=== PATIENT | female | born 1960 | race Caucasian/White ===

== ENCOUNTER 2023-08-15 20:40 | Outpatient (REF) | payer OTHER, SELFPAY ==
[2023-08-20 10:11] LABS: Age Gdln ACOG Testing Note (.); HPV Aptima Negative (Negative); IGP, Aptima HPV, rfx 16/18,45 Note (.)
== END 2023-08-15 20:41 | disposition home or self-care (01) ==
LOC: LAB 20:40
PROVIDERS: PCP Internal Medicine; Visit Provider Obstetrics & Gynecology
DX: Z01.419 Encounter for gynecological examination (general) (routine) without abnormal findings (principal)
CPT/HCPCS: 87624; G0145

== ENCOUNTER 2023-10-13 08:50 | Outpatient (OUT) | payer OTHER, SELFPAY ==
--- NOTE | 2023-10-13 08:56 | XR_ITS ---
[address] [address] Patient Name: ROCIO PETE MRN: [id number]:[id number] date: 1960 Sex: F Assigned Patient Location: [facility] Current Patient Location: [facility] Accession/Order Number: [id number] Exam Date: 10/13/2023 09:12 Report Date: 10/13/2023 09:57 At the request of: WILIAN VILLALTA Procedure: XR DEXA axial skeleton EXAMINATION: XR DEXA axial skeleton HISTORY: Postmenopausal Z78.0 COMPARISON: DEXA bone densitometry 09/23/2021 TECHNIQUE: Dual-energy X-ray absorptiometry (DXA) was performed. FINDINGS: SPINE ANALYSIS: Average bone mineral density is 1.373 g/cm2. T-score (standard deviation relative to young adult mean): 1.6 . -0.3% change since prior study. HIP ANALYSIS: Lowest bone mineral density is within the right femoral neck, 0.899 g/cm2. T-score (standard deviation relative to young adult mean): -1.0 . -7.8% change since prior study. XR/XR DEXA axial skeleton IMPRESSION: [employer] Classification: Normal - Low Fracture Risk Electronically authenticated by: CHICHI THOMAS Date: 10/13/2023 09:57
--- NOTE | 2023-10-13 08:56 | MM_ITS ---
Patient Name: ROCIO PETE MR#: [id number] : 1960 Exam Date: 10/13/2023 Ordering Doctor: DR Caden Germain . RADIOLOGY REPORT PROCEDURE: MM TOMOSYNTHESIS SCREENING BI COMPARISON: MG MAMM SCREEN 3D [place] CAD, 09/26/2022. MG MAMM SCREEN 3D [place] CAD, 09/23/2021. MG MAMM SCREEN [place] W CAD, 07/03/2020. MG MAMM [place] SCRN W CAD DIG, 02/06/2013. INDICATIONS: Screening Calculator Name NCI Breast Cancer Risk Assessment Tool 5 Year Breast Cancer Risk 1.30% Lifetime Breast Cancer Risk 6.40% Personal Breast Cancer No Personal Ovarian Cancer No Treatments None Family Cancers Sister with lung cancer at age 57; Aunt-maternal with breast cancer at age 60; Aunt-paternal with breast cancer at age 58; Father with vocal chords cancer at age 50; Mother with lung cancer at age 40. LOCATION: [facility] BREAST COMPOSITION: Scattered areas fibroglandular density. FINDINGS: DIAGNOSTIC CATEGORY 1--NEGATIVE. RIGHT BREAST: No significant suspicious finding. No significant change has occurred. LEFT BREAST: No significant suspicious finding. No significant change has occurred. RECOMMENDATIONS: ROUTINE MAMMOGRAM AND CLINICAL EVALUATION IN 12 MONTHS. PLEASE NOTE: A NORMAL MAMMOGRAM DOES NOT EXCLUDE THE POSSIBILITY OF BREAST CANCER. A CLINICALLY SUSPICIOUS PALPABLE LUMP SHOULD BE BIOPSIED. Dictated by: Maicol Romo M.D. on 10/13/2023 at 13:40 Approved by: Maicol Romo M.D. on 10/13/2023 at 13:44
--- OUTSIDE RECORDS SUMMARY | 2023-10-13 09:13 | XMS_ITS | CCD ---
Author Organization [facility] Care Team Providers Care Legal Internship Name Role Phone JESSA ., DR CEDENO Admitting Unavailable JESSA ., DR CEDENO Attending Unavailable SULAIMAN, DR YO Primary Care Unavailable JESSA ., DR CEDENO Consulting Unavailable ZIEBER, DR MAICOL Mac Consulting Unavailable SULAIMAN, DR YO Admitting Unavailable SULAIMAN, DR YO Attending Unavailable SULAIMAN, DR YO Primary Care Unavailable SULAIMAN, DR YO Consulting Unavailable MARINAEBER, DR MAICOL Mac Consulting Unavailable SULAIMAN, DR YO Admitting Unavailable SULAIMAN, DR YO Attending Unavailable SULAIMAN, DR YO Primary Care Unavailable SULAIMAN, DR YO Consulting Unavailable JESSA ., DR CEDENO Admitting Unavailable JESSA ., DR CEDENO Attending Unavailable BALL, DR YO Primary Care Unavailable JESSA ., DR CEDENO Consulting Unavailable Justus Hilario Unavailable Silvestre Escalona Unavailable MD Silvestre Escalona Attending Provider [phone] DO Justus Hilario Primary Care Provider Justus iHlario Primary Care Unavailable Silvestre Escalona Attending Unavailable Pola, Silvestre Admitting Unavailable Luis Alberto Davalos Unavailable WILIAN GERMAIN Attending Unavailable Justus Hilario MD Primary Care Provider Medications Current Medications Medication Drug Class(es) Dates Sig (Normalized) Sig (Original) levonorgestrel 0.219437 mg/hr intrauterine system (4 sources) Progestin, Progestin-containi ng Intrauterine Device Start: 03-13-2022 Mirena (52 MG) 20 MCG/DAY as directed Intrauterine for 0 days Feb, Active levothyroxine sodium 0.1 mg oral tablet (6 sources) l-Thyroxine Start: 06-02-2023 take 1 tablet by mouth before mealtime levothyroxine (Synthroid, Levoxyl) 100 MCG tablet Take 100 mcg by mouth in the morning. Take before meals. 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 Genitourinary symptoms and ill-defined conditions (4 sources) Pyuria; Translations: [Pyuria] Episodic Immunizations and screening for infectious disease (1 source) Encounter for screening for human papillomavirus (HPV); Translations: [ENC SCREENING HUMAN PAPILLOMAVIRUS] Onset: 08-10-2022 Episodic Other diseases of kidney and ureters (4 sources) Other specified disorders of kidney and ureter; Translations: [OTHER SPEC DISORDERS KIDNEY URETER] Onset: 03-29-2022 Chronic Other diseases of kidney and ureters (4 sources) Disorder of kidney and/or ureter; Translations: [Other specified disorders of kidney and ureter] Chronic Other diseases of kidney and ureters (4 sources) Cyst of kidney; Translations: [Cyst of kidney, acquired] Episodic Other screening for suspected conditions (not mental disorders or infectious disease) (10 sources) Encounter for screening mammogram for malignant neoplasm of breast; Translations: [Encounter for screening for malignant neoplasm of cervix] Onset: 08-09-2022 Episodic Residual codes; unclassified (1 source) Family history of malignant neoplasm of trachea, bronchus and lung; Translations: [FAM HX MALIG NEOPLSM TRACH BRON LNG] Onset: 09-27-2022 Episodic Residual codes; unclassified (1 source) Family history of malignant neoplasm of breast; Translations: [FAMILY HX MALIG NEOPLASM OF BREAST] Onset: 09-27-2022 Episodic Unclassified (1 source) Encounter for screening for malignant neoplasm of colon; Translations: [Encounter for screening for malignant neoplasm of colon] Onset: 06-02-2023 Results Test Name Value Interpretation Reference Range Facility IGP,APTIMA HPV,AGE GDLNon AGE GDLN ACOG TESTING Note . [facility] Comment on above: TESTS RESULT FLAG U NITS REF RANGE LAB Clinician Provided Cytology Information Source.............Cervix No. of containers..01 ThinPrep Vial Age Algo ACOG Anju... FLAG LEGEND: L-Low Normal,H-High Normal,LL-Alert Low,HH-Alert High <-Panic Low,>-Panic High,A-Abnormal,AA-Critical Abnormal Performed at: 01 =G [address] [address] Jen Brasher MD, HPV APTIMA Negative Negative [facility] Comment on above: This nucleic acid am plification test detects fourteen high- risk HPV types (16,18,31,33,35,39,45,51,52,56,58,59,66,68) without differentiation. Performed at: =[address] [id number] Nurse Supervisor: Jen Brasher MD, Phone: [phone] Performed at: [facility] [address] [place] [id number] Nurse Supervisor: Jose Lizama MD, Phone: [phone] IGP, APTIMA HPV, RFX 16/18,45 Note . [facility] Comment on above: TESTS RESULT FLAG UN ITS REF RANGE LAB DIAGNOSIS: 02 NEGATIVE FOR INTRAEPITHELIAL LESION OR MALIGNANCY. CELLULAR CHANGES ASSOCIATED WITH ATROPHY ARE PRESENT. Specimen adequacy: 02 Satisfactory for evaluation. Endocervical component may not be distinguished in cases of atrophy. Performed by: 02 Kyra Rashid, U.S. Commissioner (ASC) . 02 Note: Note 03 The Pap smear is a screening test designed to aid in the detection of premalignant and malignant conditions of the uterine cervix. It is not a diagnostic procedure and should not be used as the sole means of detecting cervical cancer. Both false-positive and false-negative reports do occur. Test Methodology: Note 03 This liquid based ThinPrep(R) pap test was screened with the use of an image guided system. HPV Genotype Reflex Note 02 Criteria not met, HPV Genotype not performed. FLAG LEGEND: L-Low Normal,H-High Normal,LL-Alert Low,HH-Alert High <-Panic Low,>-Panic High,A-Abnormal,AA-Critical Abnormal Performed at: 02 [facility] [address] [place] [address] Jose Lizama MD, 03 [facility] [address] [address] Jen Brasher MD, BRUSH-SPATULA CERVIX [facility] MG MAMM SCREEN 3D ALLISON CADon 09-26-2022 MG MAMM SCREEN 3D ALLISON CAD Patient: KYRA ARROYO Exam Date: 09/26/2022 : 1960 Gender:F Ordering : DR WILIAN GERMAIN . Admission #: [id number] Family : Order #: [id number] CLICK HERE TO VIEW EXAM RADIOLOGY REPORT PROCEDURE: MAMMOGRAM SCREENING 3D BILATERAL CAD COMPARISON: MG MAMM SCREEN ALLISON W CAD, 07/03/2020. MG MAMM SCREEN ALLISON W CAD, 07/02/2019. DIGITIZED_MAMMO, 07/03/2007. MG MAMM SCREEN 3D ALLISON CAD, 09/23/2021. INDICATIONS: Screening mammography Calculator Name NCI Breast Cancer Risk Assessment Tool 5 Year Breast Cancer Risk 1.30% Lifetime Breast Cancer Risk 6.60% Personal Breast Cancer No Personal Ovarian Cancer No Treatments None Family Cancers Sister with lung cancer at age 57; Aunt-maternal with breast cancer at age 60; Aunt-paternal with breast cancer at age 58; Father with vocal chords cancer at age 50; Mother with lung cancer at age 40. LOCATION: [facility] BREAST COMPOSITION: Scattered areas fibroglandular density. FINDINGS: DIAGNOSTIC CATEGORY 1--NEGATIVE. RIGHT BREAST: No significant suspicious finding. No significant change has occurred. LEFT BREAST: No significant suspicious finding. No significant change has occurred. RECOMMENDATIONS: ROUTINE MAMMOGRAM AND CLINICAL EVALUATION IN 12 MONTHS. PLEASE NOTE: A NORMAL MAMMOGRAM DOES NOT EXCLUDE THE POSSIBILITY OF BREAST CANCER. A CLINICALLY SUSPICIOUS PALPABLE LUMP SHOULD BE BIOPSIED. Dictated by: Maicol Romo M.D. on 09/26/2022 at 10:21 Approved by: Maicol Romo M.D. on 09/26/2022 at 10:23 Normal [facility] PAP ACOG PANEL 2: 30 to 65on 08-16-2022 . . Normal [facility] Comment on above: Result Comment: Perf ormed at: [facility] Performed By: #### [id number] #### [facility] [address] [address] [address] Ramin Ambrose Age Gdln ACOG Testing 30-65 Normal [facility] Comment on above: Performed By: #### [id number] #### [facility] [address] [place] [address] Dr. Ramin Ambrose DIAGNOSIS: Comment Normal [facility] Comment on above: Result Comment: NEGA TIVE FOR INTRAEPITHELIAL LESION OR MALIGNANCY. CELLULAR CHANGES ASSOCIATED WITH ATROPHY ARE PRESENT. Performed at: [facility] Performed By: #### [id number] #### [facility] [address] [place] [address] Dr. Ramin Ambrose HPV Aptima Negative Normal Negative [facility] Comment on above: Result Comment: This nucleic acid amplification test detects fourteen high-risk HPV types (16,18,31,33,35,39,45,51,52,56,58,59,66,68) without differentiation. Performed at: =G Performed By: #### 4 [id number] #### [facility] [address] [place] [address] Dr. Ramin Ambrose HPV Genotype Reflex Comment Normal [facility] Comment on above: Result Comment: Crit eria not met, HPV Genotype not performed. Performed at: [facility] Performed By: #### [id number] #### [facility] [address] [place] [address] Dr. Ramin Ambrose Methodology: Comment Normal [facility] Comment on above: Result Comment: This liquid based ThinPrep(R) pap test was screened with the use of an image guided system. Performed at: [facility] Performed By: #### [id number] #### [facility] [address] [place] [address] Dr. Ramin Ambrose Note: Comment Normal [facility] Comment on above: Result Comment: The Pap smear is a screening test designed to aid in the detection of premalignant and malignant conditions of the uterine cervix. It is not a diagnostic procedure and should not be used as the sole means of detecting cervical cancer. Both false-positive and false-negative reports do occur. . Performed at: [facility] Performed By: #### [id number] #### [facility] [address] [place] [address] Dr. Ramin Ambrose Performed by: Comment Normal [facility] Comment on above: Result Comment: Og Velazco U.S. Commissioner (ASCP) Performed at: [facility] Performed By: #### 4 [id number] #### [facility] [address] [address] [address] Ramin Ambrose Specimen adequacy: Comment Normal [facility] Comment on above: Result Comment: Sati sfactory for evaluation. Endocervical component may not be distinguished in cases of atrophy. Performed at: [facility] Performed By: #### 4 [id number] #### [facility] [address] ABDOMEN WO/W CONon 2021 CT ABDOMEN WO/W CON EXAMINATION: CT ABDOMEN WO/W CON HISTORY: Disorder of kidney and/or ureter ; follow-up left renal mass COMPARISON: CT abdomen pelvis 06/21/2021 TECHNIQUE: Axial, Coronal, and Sagittal images were created without and with non-ionic intravenous contrast material. Dose reduction techniques were achieved by using automated exposure control and/or adjustment of mA and/or kV according to patient size and/or use of iterative reconstruction technique. FINDINGS: LUNG BASES: No visible pulmonary or pleural disease. LIVER: No enlargement, atrophy, abnormal density, or significant focal lesion. BILIARY: No visible dilatation or calcification. PANCREAS: No lesion, fluid collection, ductal dilatation, or atrophy. SPLEEN: No enlargement or focal lesion. ADRENALS: No mass or enlargement. KIDNEYS: Stable 1.6 cm cyst within mid body of left kidney. No hydronephrosis, mass, or stones. BOWEL/MESENTERY: No visible mass, obstruction, or bowel wall thickening. AORTA/VASCULAR: No aneurysm or dissection. RETROPERITONEUM: No mass or adenopathy. ABDOMINAL WALL: No mass or hernia. BONES: No bony lesion or fracture. OTHER: Negative. IMPRESSION: 1. Stable left renal cyst. No suspicious findings. Electronically authenticated by: MAICOL ROMO Date: 2022-03-29 16:19 Normal [facility] CBC AUTO DIFFon 03-03-2022 BASO # 0.1 103/ul Normal 0.0-0.1 [facility] Comment on above: Performed By: #### H FPFCBC #### [facility] [address] [address] [address] Ramin Ambrose Basophils/100 WBC (Bld) 1.7 % Normal 0.2-2.0 [facility] Comment on above: Performed By: #### H FPFCBC #### [facility] [address] [place] [address] Dr. Ramin Ambrose EO # 0.3 103/ul Normal 0.0-0.7 [facility] Comment on above: Performed By: #### H FPFCBC #### [facility] [address] [place] [address] Dr. Ramin Ambrose Eosinophils/100 WBC (Bld) 7.4 % Critically high 0.9-7.0 [facility] Comment on above: Performed By: #### H FPFCBC #### [facility] [address] [place] [address] Dr. Ramin Ambrose Erythrocyte distribution width (RBC) [Ratio] 12.1 % Normal 11.0-15.0 [facility] Comment on above: Performed By: #### H FPFCBC #### [facility] [address] [place] [address] Dr. Ramin Ambrose Hematocrit (Bld) [Volume fraction] 40.5 % Normal 36.0-48.0 [facility] Comment on above: Performed By: #### H FPFCBC #### [facility] [address] [place] [address] Dr. Ramin Ambrose Hemoglobin (Bld) [Mass/Vol] 13.4 g/dL Normal 12.0-16.0 [facility] Comment on above: Performed By: #### H FPFCBC #### [facility] [address] [place] [address] Dr. Ramin Ambrose IG # 0.00 10e3/ul Normal 0.00-0.03 [facility] Comment on above: Performed By: #### H FPFCBC #### [facility] [address] [place] [address] Dr. Ramin Ambrose IG % 0.0 % Normal 0.0-0.5 [facility] Comment on above: Performed By: #### H FPFCBC #### [facility] [address] [place] [address] Dr. Ramin Ambrose LYMPH # 1.6 103/ul Normal 1.2-3.8 [facility] Comment on above: Performed By: #### H FPFCBC #### [facility] [address] [place] [address] Dr. Ramin Ambrose Lymphocytes/100 WBC (Bld) 38.2 % Normal 20.5-60.0 [facility] Comment on above: Performed By: #### H FPFCBC #### [facility] [address] [place] [address] Dr. Ramin Ambrose MCH (RBC) [Entitic mass] 31.2 pg Normal 26.7-34.0 [facility] Comment on above: Performed By: #### H FPFCBC #### [facility] [address] [place] [address] Dr. Ramin Ambrose MCHC (RBC) [Mass/Vol] 33.1 g/dL Normal 29.9-35.2 [facility] Comment on above: Performed By: #### H FPFCBC #### [facility] [address] [place] [address] Dr. Ramin Ambrose MCV (RBC) [Entitic vol] 94.4 fL Normal 81.0-99.0 [facility] Comment on above: Performed By: #### H FPFCBC #### [facility] [address] [place] [address] Dr. Ramin Ambrose MONO # 0.3 103/ul Normal 0.3-0.8 [facility] Comment on above: Performed By: #### H FPFCBC #### [facility] [address] [place] [address] Dr. Ramin Ambrose Monocytes/100 WBC (Bld) 7.4 % Normal 1.7-12.0 [facility] Comment on above: Performed By: #### H FPFCBC #### [facility] [address] [place] [address] Dr. Ramin Ambrose NEUT # 1.8 103/ul Normal 1.4-6.5 [facility] Comment on above: Performed By: #### H FPFCBC #### [facility] [address] [place] [address] Dr. Ramin Ambrose Neutrophils/100 WBC (Bld) 45.3 % Normal 43.0-75.0 [facility] Comment on above: Performed By: #### H FPFCBC #### [facility] [address] [address] [address] Ramin Ambrose Platelet mean volume (Bld) [Entitic vol] 9.9 fL Normal 9.5-13.5 [facility] Comment on above: Performed By: #### H FPFCBC #### [facility] [address] [address] [address] Ramin Ambrose PLT 233 103/ul Normal 150-450 [facility] Comment on above: Performed By: #### H FPFCBC #### [facility] [address] [place] [address] Dr. Ramin Ambrose RBC 4.29 106/ul Normal 4.20-5.40 [facility] Comment on above: Performed By: #### H FPFCBC #### [facility] [address] [place] [address] Dr. Ramin Ambrose WBC 4.1 103/ul Normal 4.0-11.0 [facility] Comment on above: Performed By: #### H FPFCBC #### [facility] [address] [place] [address] Dr. Ramin Ambrose HEALTHFAIR PROFILEon 022 Albumin [Mass/Vol] 4.2 g/dL Normal 3.4-5.0 [facility] Comment on above: Performed By: #### H FPF #### [facility] [address] [place] [address] Dr. Ramin Ambrose Albumin/Globulin [Mass ratio] 1.2 {ratio} Normal [facility] Comment on above: Performed By: #### H FPF #### [facility] [address] [place] [address] Dr. Ramin Ambrose ALP [Catalytic activity/Vol] 63 U/L Normal 46-116 [facility] Comment on above: Performed By: #### H FPF #### [facility] [address] [place], [place] [id number] Dr. Ramin Ambrose ALT [Catalytic activity/Vol] 28 U/L Normal 14-59 [facility] Comment on above: Performed By: #### H FPF #### [facility] [address] [address] [address] Ramin Ambrose AST [Catalytic activity/Vol] 28 U/L Normal 15-37 [facility] Comment on above: Performed By: #### H FPF #### [facility] [address] [address] [address] Ramin Ambrose Bilirubin [Mass/Vol] 0.6 mg/dL Normal 0.2-1.0 [facility] Comment on above: Performed By: #### H FPF #### [facility] [address] [place] [address] Dr. Ramin Ambrose Calcium [Mass/Vol] 9.2 mg/dL Normal 8.5-10.1 [facility] Comment on above: Performed By: #### H FPF #### [facility] [address] [place] [address] Dr. Ramin Ambrose Chloride [Moles/Vol] 105 mmol/L Normal 98-107 [facility] Comment on above: Performed By: #### H FPF #### [facility] [address] [place] [address] Dr. Ramin Ambrose CHOL-HDL RATIO NORM SEE BELOW Normal [facility] Comment on above: Result Comment: 3.3 - 4.4 LOW RISK 4.4 - 7.1 AVERAGE RISK 7.1 - 11.0 MODERATE RISK >11.0 HIGH RISK Performed By: #### H FPF #### [facility] [address] [place] [address] Dr. Ramin Ambrose Cholesterol [Mass/Vol] 172 mg/dL Normal <=200 [facility] Comment on above: Performed By: #### H FPF #### [facility] [address] [place] [address] Dr. Ramin Ambrose Cholesterol in HDL [Mass/Vol] 79 mg/dL Critically high 40-60 [facility] Comment on above: Performed By: #### H FPF #### [facility] [address] [address] [address] Ramin Ambrose Cholesterol in LDL [Mass/Vol] 85.8 mg/dL Normal [facility] Comment on above: Performed By: #### H FPF #### [facility] [address] [address] [address] Ramin Ambrose Cholesterol.total/ Cholesterol in HDL [Mass ratio] 2.2 {ratio} Normal [facility] Comment on above: Performed By: #### H FPF #### [facility] [address] [address] [address] Ramin Ambrose CO2 [Moles/Vol] 28.6 mmol/L Normal 21.0-32.0 [facility] Comment on above: Performed By: #### H FPF #### [facility] [address] [address] [address] Ramin Ambrose Creatinine [Mass/Vol] 1.12 mg/dL Critically high 0.55-1.02 [facility] Comment on above: Performed By: #### H FPF #### [facility] [address] [address] [address] Ramin Ambrose Globulin (S) [Mass/Vol] 3.5 g/dL Normal [facility] Comment on above: Performed By: #### H FPF #### [facility] [address] [address] [address] Ramin Ambrose Glucose [Mass/Vol] 78 mg/dL Normal 74-106 [facility] Comment on above: Performed By: #### H FPF #### [facility] [address] [address] [address] Ramin Ambrose HDL NORMAL > or = 60 mg/dl - LO W CARDIOVASCULAR RISK <40 mg/dl - HIGH CARDIOVASCULAR RISK Normal [facility] Comment on above: Performed By: #### H FPF #### [facility] [address] [address] [address] Ramin Ambrose LDL CALC NORMAL SEE BELOW Normal [facility] Comment on above: Result Comment: <100 mg/dl OPTIMAL 100 - 129 mg/dl NEAR OR ABOVE OPTIMAL 130 - 159 mg/dl BORDERLINE HIGH 160 - 189 mg/dl HIGH >190 mg/dl VERY HIGH Performed By: #### H FPF #### [facility] [address] [place] [address] Dr. Ramin Ambrose Potassium [Moles/Vol] 3.8 mmol/L Normal 3.5-5.1 [facility] Comment on above: Performed By: #### H FPF #### [facility] [address] [place] [address] Dr. Ramin Ambrose Protein [Mass/Vol] 7.7 g/dL Normal 6.4-8.2 [facility] Comment on above: Performed By: #### H FPF #### [facility] [address] [place] [address] Dr. Ramin Ambrose Sodium [Moles/Vol] 142 mmol/L Normal 136-145 [facility] Comment on above: Performed By: #### H FPF #### [facility] [address] [place] [address] Dr. Ramin Ambrose Triglyceride [Mass/Vol] 36 mg/dL Normal <=150 [facility] Comment on above: Performed By: #### H FPF #### [facility] [address] [place] [address] Dr. Ramin Ambrose TSH 1.448 uIU/mL Normal 0.358-3.740 [facility] Comment on above: Performed By: #### H FPF #### [facility] [address] [place] [address] Dr. Ramin Ambrose Urea nitrogen [Mass/Vol] 14.0 mg/dL Normal 7.0-18.0 [facility] Comment on above: Performed By: #### H FPF #### [facility] [address] [place] [address] Dr. Ramin Ambrose Urea nitrogen/Creatinin e [Mass ratio] 12.5 mg/mg Normal [facility] Comment on above: Performed By: #### H FPF #### [facility] [address] [place] [address] Dr. Ramin Ambrose VLDL CALC 7.2 mg/dL Normal [facility] Comment on above: Performed By: #### H FPF #### [facility] [address] [address] [address] Ramin Ambrose Vital Signs Date Time Vital Sign Value Performing Clinician Facility 06-02-2023 12:44-0500 Diastolic blood pressure 72 mm[Hg] DO Justus Ball Work Phone: [facility] 06-02-2023 12:44-0500 Heart rate 63 /min DO Justus Ball Work Phone: [facility] 06-02-2023 12:44-0500 Respiratory rate 18 /min DO Justus Ball Work Phone: [facility] 06-02-2023 12:44-0500 SaO2% (BldA) [Mass fraction] 98 % DO Justus Ball Work Phone: [facility] 06-02-2023 12:44-0500 Systolic blood pressure 119 mm[Hg] DO Justus Ball Work Phone: [facility] 06-02-2023 10:40-0500 Body height 160.02 cm DO Justus Ball Work Phone: [facility] 06-02-2023 10:40-0500 Body weight 61.23 kg DO Justus Ball Work Phone: [facility] 03-16-2023 11:30-0400 Body height 165.1 cm Justus Ball Other [facility] Other 03-16-2023 11:30-0400 Body mass index (BMI) [Ratio] 24.69 kg/m2 Justus Ball Other [facility] Other 03-16-2023 11:30-0400 Body weight 67.31 kg Justus Ball Other [facility] Other 03-16-2023 11:30-0400 Diastolic blood pressure 74 mm[Hg] Justus Ball Other [facility] Other 03-16-2023 11:30-0400 Respiratory rate 12 /min Justus Hilario Other [facility] Other 03-16-2023 11:30-0400 Systolic blood pressure 120 mm[Hg] Justus Hilario Other [facility] Other Encounters Encounter Date Encounter Type Care Provider Facility Start: 08-15-2023 [facility] Result Encounter Wilian Jessa DO Work Phone: [facility] Unsolicited Start: 08-15-2023 [facility] Result Encounter Wilian Jessa DO Work Phone: [facility] Unsolicited Start: 08-15-2023 End: 08-15-2023 ambulatory WILIAN JESSA Not Available Start: 06-22-2023 End: 06-22-2023 ambulatory Luis Alberto Davalos Other [facility] Other Start: 06-22-2023 Telephone encounter Luis Alberto Rodriguez Embroidery Assistant Start: 06-06-2023 End: 06-06-2023 ambulatory Justus Hilario Other [facility] Other Start: 06-06-2023 Telephone encounter [facility] Start: 06-02-2023 End: 06-02-2023 ambulatory Justus Hilario Facility:[facility] Start: 06-02-2023 End: 06-02-2023 Admission to same day surgery center DO Justus Hilario Work Phone: [facility] Work Phone: Start: 06-02-2023 End: 06-02-2023 ambulatory DO Justus Hilario Work Phone: [facility] Work Phone: Start: 03-31-2023 End: 03-31-2023 ambulatory Imad Asaad Other [facility] Other Start: 03-31-2023 Telephone encounter Imad Pola [employer] Start: 03-16-2023 End: 03-16-2023 ambulatory Justus Hilario Other [facility] Other Start: 03-16-2023 Encounter for genera l adult medical examination without abnormal findings Justus Hilario [facility] Start: 03-16-2023 Periodic preventive med est patient 40-64yrs Justus Sulaiman [facility] Start: 09-26-2022 End: 09-27-[address] WILIAN GERMAIN . Facility:[facility] Start: 08-09-2022 End: 08-09-[address] WILIAN GERMAIN . Facility:[facility] Start: 03-29-2022 End: 03-30-[address] JUSTUS HILARIO Facility:[facility] Start: 03-03-2022 End: 03-04-[address] JUSTUS HILARIO Facility:[facility] Procedures Date Procedure Procedure Detail Performing Clinician Start: 08-15-2023 IGP,APTIMA HPV,AGE GDLN Wilian Germain DO Work Phone: Start: 06-02-2023 Screening colonoscopy D O Justus Hilario Work Phone: Start: 09-26-2022 Mammography Wilian smith DO Work Phone: Screening for malign ant neoplasm of colon Justus Hilario Other Plan of Treatment Date Care Activity Detail Author Start: 08-20-2024 End: 08-20-2024 Patient encounter procedure 08/20/2024 8:30 AM EST Office Visit [facility] [address] [place] [address] Wilian Germain, DO [address] [place] [address] [facility] Start: 09-27-2023 Screening for malign ant neoplasm of breast Mammogram [facility] Start: 06-02-2023 [facility] Start: 03-17-2023 Influenza vaccination Influenza Vacc ine (#1) [facility] Start: 1992 Screening for malign ant neoplasm of cervix [facility] Start: 1983 Screening for malign ant neoplasm of cervix Pap Smear [facility] Start: 1962 Screening for malign ant neoplasm of colon [facility] Patient Education Hemorrhoids (DC) [facility] Work Phone: Payers Date Payer Category Payer Self-pay 2023 Unknown [employer] [id number] 2023-Present [address] [place] [address] [id number] 1960 Unknown [id number] 1962 Unknown [id number] 1962 Unknown [id number] 1962 Unknown [id number] 1959 Self-pay [id number] 1959 Unknown [id number] Unknown [id number] Unknown [id number] Social History Date Type Detail Facility Start: 07-26-2023 Sex Assigned At N [facility] Other Start: 1960 Sex Assigned At Female F [facility] Start: 07-26-2023 Tobacco smoking status NHIS Never smoked tobacco [facility] Start: 08-15-2023 Alcohol intake Current drinke r of alcohol (finding) [facility] Start: 07-26-2023 History of Social function [facility] Start: 07-26-2023 Alcohol Comment caffeine 1-2 c ups per day coffee [facility] Start: 08-08-2023 Gender identity Identifies as female gender (finding) [facility] Goals Date Patient Goal Desired Activity /State Procedure note 06-02-2023 Note Date & Type Note Facility 06-02-2023 Procedure note [facility] Evaluation note 03-16-2023 Note Date & Type Note Facility 03-16-2023 Evaluation note Encounter Date Diagnosis Assessment Notes Feb, Wellness examination (ICD-10 - Z00.00) Healthy diet and exercise. Reviewed age-appropriate preventive testing recommended. Feb, Postablative hypothyroidism (ICD-10 - E89.0) TSH suppressed but she denies symptoms of overactive thyroid and would prefer no change in her dose. Discussed potential adverse influence on bone health and need to reduce dose in future Feb, Screening mammogram for breast cancer (ICD-10 - Z12.31) Instructed on monthly SBE and yearly mammogram Feb, Screening for colon cancer (ICD-10 - Z12.11) She is due for CRC screening- her last colonoscopy was in 2012- she denies change in appetite, weight or bowel habits- she denies N/V, heartburn or dysphagia- she denies abdominal pain, melena or hematochezia [facility] Other Evaluation note Note Date & Type Note Facility Evaluation note No Information [facility] [employer] Other Evaluation note Note Date & Type Note Facility Evaluation note No assessment information availa [facility] Work Phone: History and physical note Note Date & Type Note Facility History and physical note Note Date/Time June 02, 2023 11:47am [facility] [address] [place] [address] Gastroenterology H&P Signed Patient: Kyra Arroyo MR#: [id number] 0 : 1960 Acct:[id number] Age/Sex: 62 / F Adm Date: 3 Loc: Room: Type: [facility] Attending Dr: Silvestre Escalona MD Copies to: Justus Hilario,DO Silvestre Escalona MD~ Date of Service: 06/02/2023 HISTORY & PHYSICAL: Patient's history with special attention to the cardiovascular, pulmonary systems and the current problem was reviewed with the patient immediately prior to the procedure. Present medications and doses reviewed in the EMR. Allergies and pertinent laboratory tests were also reviewedat this time in the EMR. The physical examination, as below, was then performed. Indication, assessment and HPI: 62-year-old female here for screening colonoscopy Family history of GI malignancy? No PHYSICAL EXAMINATION Mouth and Pharynx : Moist mucus membranes, normal dentition Cardiac: Regular rate, regular rhythm Pulmonary: Clear to auscultation bilaterally, no wheezing Neurological: Alert and oriented x3, no focal deficits noted Abdomen: Abdomen soft, non-tender REVIEW OF SYSTEMS Constitutional: Denies malaise, fevers Cardiovascular: Denies chest pain, palpitations Respiratory: Denies shortness of breath, wheezing Gastrointestinal: Per HPI Genitourinary: Denies dysuria, polyuria Musculoskeletal: Denies joint swelling, joint stiffness Neurological: Denies numbness, tingling Integumentary: Denies rashes, skin lesions Endocrine: Denies fatigue, weight loss Written informed consent obtained from the patient. Risks (including but not limited to perforation, infection, bloating, bleeding, need for emergent surgeryand loss of life), benefits and alternatives explained and questions answered. The patient verbalized understanding. Based on history patient is an appropriate candidate for the procedure. Silvestre Escalona M.D. Documented By: Silvestre Escalona MD 06/02/23 114 Signed By: <Electronically signed by Silvestre Escalona MD> 06/02/23 114 [facility] Work Phone: History general Narrative - Reported Note Date & Type Note Facility History general Narrative - Reported Type Medical History Pyuria Medical History Postablative hypothyroidism Medical History Renal cyst Medical History Left renal mass Surgical History Delivery Surgical History Essure Procedure Surgical History Excision BCC Surgical History Tubal Ligation Surgical History Colonoscopy 2012 Surgical History BTL 2007 Hospitalization History [facility] Other History general Narrative - Reported Note Date & Type Note Facility History general Narrative - Reported Type Medical History Pyuria Medical History Postablative hypothyroidism Medical History Renal cyst Medical History Left renal mass Surgical History Delivery Surgical History Essure Procedure Surgical History Excision BCC Surgical History Tubal Ligation Surgical History Colonoscopy 2012 Surgical History BTL 2007 Surgical History Colonoscopy 05/2023 Hospitalization History [facility] Other Hospital Discharge instructions Note Date & Type Note Facility Hospital Discharge instructions Additional Instructions DISCHARGE INSTRUCTIONS FOR COLONOSCOPY WHAT TO EXPECT: - You may feel full, gassy or cramping after your procedure. In some cases, this may be from a few hours to a day. Walking may help relieve the discomfort. - If you have polyp(s) removed you may note some minor bloody discharge after your first bowel movements. - You should begin to recover from anesthesia within 1 hour of the procedure, however may feel groggy for the next 24 hours. DO's AND DON'Ts: - Call your doctor right away if you have a hard abdomen, severe pain, are passing lots of bright red blood or clots. - Call your doctor if you develop any rashes, hives or difficulty breathing. - Let your doctor know if you have not had a bowel movement by 3 days after your procedure. - If you take 81 mg aspirin for your heart it is safe to resume this medication. - If you take other blood thinner medications your doctor will instruct you when these can safely be resumed. - Do NOT drive for 24 hours. - Do NOT operate machinery such as power tools, [employer] mowers, [employer], sewing machines, etc. for 24 hours. - Avoid alcoholic beverages and drugs for allergies, nerves, or sleep. - Do NOT stay alone. Do NOT leave your child unattended. - Do NOT make important personal or business decisions or sign any legal documents. - Eat solid foods and drink liquids in smaller amounts than usual until normal appetite returns. If you should experience an upset stomach, liquids high in sugar content (soda, Irving-Aid, non-acid juices) are recommended. - You can resume normal activities tomorrow. FOLLOW UP & RECOMMENDATIONS: -Notify the doctor if you have any problems. -Repeat colonoscopy in 10 years. -Follow up with PCP. -Office number [phone]. [facility] Work Phone: Reason for referral (narrative) Note Date & Type Note Facility Reason for referral (narrative) Diagnosis 1 Screening for colon cancer (Z12.11) Referral Organization [facility] Sulaiman ramirez Referring Provider First Name Justus Referring Provider Last Name Sulaiman Referring Provider Specialty Internal Medicine Referred Organization [facility] Referred Provider Silvestre Escalona Referred Address [address],[place],[address] Referred Provider Specialty Gastroenterology Referral Priority Routine General Notes Mrs. Arroyo is an asym ptomatic, low risk patient who is due for a screening colonoscopy. Her last colonoscopy was in 2012. She denies change in appetite, weight or bowel habits. She denies N/V, heartburn or dysphagia. She denies abdominal pain, melena or hematochezia Merle Lowery 03/16/2023 04:26:24 PM >recieved today, sent P2P [facility] Other Summary Purpose Family History Relationship Condition Age at Onset Recorded Date/T sharon father Non-Hodgkin's lymphoma Unknown Not Specified Malignant neoplasm of lung Unknown sister Malignant neoplasm of lung Unknown Advance Directives Advance Directive Response Recorded Date/ Time Advance Directives No May 1:09pm Chief Complaint and Reason for Visit Chief Complaint Screening Additional Source Comments INFORMATION SOURCE (unrecogn ized section and content) DATE CREATED AUTHOR 09/27/2022 [facility] DATE CREATED AUTHOR AUTHOR'S ORGANIZ ATION 06/14/2023 [facility] DATE CREATED AUTHOR AUTHOR'S ORGANIZ ATION 08/16/2023 [facility] EPIC REASON FOR VISIT (unrecogniz ed section and content) [employer] PPWNo Informati onGASTRO OP REPORT Care Teams (unrecognized sec tion and content) Team Status: Active Member Role Status Dates Justus Hilario DO Primary Care Provider Active Team Status: Inactive Member Role Status Dates Silvestre Escalona MD Attending Provider Active Justus iHlario DO Primary Care Provider Active Legal Internship Relationship Specialty Start Date End Date Justus Hilario MD [address] [place] [address] PCP - General 08/08/23 FOR RECORDS PERTAINING TO PATIENTS WHO ARE OR HAVE BEEN ENROLLED IN A CHEMICAL DEPENDENCY/SUBSTANCEABUSE PROGRAM, SOME INFORMATION MAY BE OMITTED. This clinical summary was aggregated from multiple sources. Caution should be exercised in using it in the provision of clinical care. This summary normalizes information from multiple sources, and as a consequence, information in this document may materially change the coding, format and clinical context of patient data. In addition, data may be omitted in some cases. CLINICAL DECISIONS SHOULD BE BASED ON THE PRIMARY CLINICAL RECORDS. [facility] [employer] [facility]. provides no warranty or guarantee of the accuracy or completeness of information in this document.
== END 2023-10-13 08:51 | disposition home or self-care (01) ==
LOC: MAMMO 08:50
PROVIDERS: PCP Internal Medicine; Visit Provider Obstetrics & Gynecology
DX: Z12.31 Encounter for screening mammogram for malignant neoplasm of breast (principal); Z78.0 Asymptomatic menopausal state; Z80.3 Family history of malignant neoplasm of breast; Z80.1 Family history of malignant neoplasm of trachea, bronchus and lung; Z80.8 Family history of malignant neoplasm of other organs or systems
CPT/HCPCS: 77063; 77067; 77080

== ENCOUNTER 2024-06-28 08:22 | Outpatient (OUT) | payer OTHER, SELFPAY ==
--- OUTSIDE RECORDS SUMMARY | 2024-06-28 08:29 | XMS_ITS | CCD ---
Author Organization [facility] Care Team Providers Care Product Safety Expert Name Role Phone JESSA ., DR CEDENO Admitting Unavailable JESSA ., DR CEDENO Attending Unavailable BALL, DR YO Primary Care Unavailable JESSA ., DR CEDENO Consulting Unavailable ZIEBER, DR MAICOL Mac Consulting Unavailable SULAIMAN, DR YO Admitting Unavailable SULAIMAN, DR YO Attending Unavailable SULAIMAN, DR YO Primary Care Unavailable SULAIMAN, DR YO Consulting Unavailable ZIEBNIC, DR MAICOL Mac Consulting Unavailable SULAIMAN, DR YO Admitting Unavailable SULAIMAN, DR YO Attending Unavailable SULAIMAN, DR YO Primary Care Unavailable SULAIMAN, DR YO Consulting Unavailable JESSA ., DR CEDENO Admitting Unavailable JESSA ., DR CEDENO Attending Unavailable BALL, DR YO Primary Care Unavailable JESSA ., DR CEDENO Consulting Unavailable Justus Hilario Unavailable Asaad, Imad Unavailable MD Silvestre Escalona Attending Provider DO Justus Hilario Primary Care Provider Justus Hilario Primary Care Unavailable Asaad, Imad Attending Unavailable Asaad, Imad Admitting Unavailable Luis Alberto Davalos Unavailable WILIAN GERMAIN Attending Unavailable Justus Hilario MD Primary Care Provider Medications Current Medications Medication Drug Class(es) Dates Sig (Normalized) Sig (Original) levonorgestrel 0.018189 mg/hr intrauterine system (4 sources) Progestin, Progestin-containi ng Intrauterine Device Start: 03-13-2022 Mirena (52 MG) 20 MCG/DAY as directed Intrauterine for 0 days Feb, Active levothyroxine sodium 0.1 mg oral tablet (9 sources) l-Thyroxine Start: 02-06-2024 End: 03-21-2024 Levothyroxine Active 0 .ROUTE .COMPLEX 90 90 March 21, 2024 9:38pm TAKE 1 TABLET DAILY MONDAY-MONDAY AND 1/2 TABLET ON MONDAY Start: 06-02-2023 End: 02-06-2024 take 1 tablet by mouth once daily Levothyroxine (Synthroid) 100 mcg tablet Discontinued 100 MCG PO Daily June 02, 2023 1:00am February 06, 2024 12:57pm Levothyroxine So dium 100 MCG TAKE 1 TABLET DAILY Orally Once a day for 10 days Active polyethylene glycol 3350 484321 mg / potassium chloride 2970 mg / sodium bicarbonate 6740 mg / sodium chloride 5860 mg / sodium sulfate 62803 mg powder for oral solution (3 sources) [...] conditions (not mental disorders or infectious disease) (12 sources) Encounter for screening mammogram for malignant [...] MALIG NEOPLASM OF BREAST] Onset: 09-27-2022 Episodic Thyroid disorders (2 sources) Hypothyroidism; Translations: [Hypothyroidism, unspecified] 03-21-2024 Chronic Unclassified (1 source) Encounter for screening for malignant neoplasm of colon; Translations: [Encounter for screening for malignant neoplasm of colon] Onset: 06-02-2023 Results Test Name Value Interpretation Reference Range Facility Basophils Auto (Bld) [#/Vol] on 03-01-2024 Basophils (Bld) [#/Vol] 0.1 10 3/uL 0.0-0.1 [facility] Basophils/100 WBC Auto (Bld) on 03-01-2024 Basophils/100 WBC (Bld) 1.4 % 0.2-2.0 [facility] Cholesterol in LDL Calc [Mas s/Vol]on 03-01-2024 Cholesterol in LDL [Mass/Vol] 68.0 mg/dL [facility] Comment on above: <100 mg/dl [id number] 0-129 mg/dl NEAR OR ABOVE [id number] mg/dl BORDERLINE [id number] mg/dl HIGH>190 mg/dl VERY HIGH Cholesterol in VLDL Calc [Ma ss/Vol]on 03-01-2024 Cholesterol in VLDL [Mass/Vol] 6.8 mg/dL [facility] Eosinophils/100 WBC Auto (Bl d)on 03-01-2024 Eosinophils/100 WBC (Bld) 8.2 % High 0.9-7.0 [facility] Erythrocyte distribution wid th Auto (RBC) [Ratio]on 03-01-2024 Erythrocyte distribution width (RBC) [Ratio] 11.4 % 11.0-15.0 [facility] Estimated glomerular filtrat ion rate (GFR) non- Americanon 03-01-2024 GFR/1.73 sq M.predicted among non-blacks MDRD (S/P/Bld) [Vol rate/Area] mL/min/{1.73_m2} >=60 [facility] Globulin Calc (S) [Mass/Vol] on 03-01-2024 Globulin (S) [Mass/Vol] 3.3 g/dL [facility] Hematocrit Auto (Bld) [Volum e fraction]on 03-01-2024 Hematocrit (Bld) [Volume fraction] 41.9 % 36.0-48.0 [facility] Hemoglobin [Mass/volume] in Bloodon 03-01-2024 Hemoglobin (Bld) [Mass/Vol] 13.9 g/dL 12.0-16.0 [facility] Laboratory - Chemistry and C hemistry - challengeon 03-01-2024 Albumin [Mass/Vol] 3.9 g/dL 3.4-5.0 [facility] ALP [Catalytic activity/Vol] 54 U/L 46-116 [facility] ALT [Catalytic activity/Vol] 32 U/L 14-59 [facility] AST [Catalytic activity/Vol] 27 U/L 15-37 [facility] Bilirubin [Mass/Vol] 0.4 mg/dL 0.2-1.0 [facility] Calcium [Mass/Vol] 9.3 mg/dL 8.5-10.1 [facility] Chloride [Moles/Vol] 107 mmol/L 98-107 [facility] Cholesterol [Mass/Vol] 150 mg/dL <=200 [facility] Cholesterol in HDL [Mass/Vol] 76 mg/dL High 40-60 [facility] Comment on above: > or =60 mg/dl - LOW CARDIOVASCULAR RISK<40 mg/dl - HIGH CARDIOVASCULAR RISK CO2 [Moles/Vol] 29.6 mmol/L 21.0-32.0 [facility] Creatinine [Mass/Vol] 0.86 mg/dL 0.55-1.02 [facility] GFR/1.73 sq M.predicted MDRD (S/P/Bld) [Vol rate/Area] mL/min/{1.73_m2} >=60 [facility] Glucose [Mass/Vol] 79 mg/dL 74-106 [facility] Potassium [Moles/Vol] 4.8 mmol/L 3.5-5.1 [facility] Protein [Mass/Vol] 7.2 g/dL 6.4-8.2 [facility] Sodium [Moles/Vol] 143 mmol/L 136-145 [facility] Triglyceride [Mass/Vol] 34 mg/dL <=150 [facility] TSH Qn 0.064 m[IU]/L Low 0.358-3.740 [facility] Urea nitrogen [Mass/Vol] 19.0 mg/dL High 7.0-18.0 [facility] Urea nitrogen/Creatinine [Mass ratio] 22.1 mg/mg [facility] Laboratory - Hematology and Cell countson 03-01-2024 Immature granulocytes/100 WBC (Bld) 0.0 % 0.0-0.5 [facility] Leukocytes [#/volume] correc mercy for nucleated erythrocytes in Blood by Automated counon 03-01-2024 WBC corrected for nucl RBC Auto (Bld) [#/Vol] 4.3 10 3/uL 4.0-11.0 [facility] Lymphocytes Auto (Bld) [#/Vo l]on 03-01-2024 Lymphocytes (Bld) [#/Vol] 1.8 10 3/uL 1.2-3.8 [facility] Lymphocytes/100 WBC Auto (Bl d)on 03-01-2024 Lymphocytes/100 WBC (Bld) 41.6 % 20.5-60.0 [facility] MCH Auto (RBC) [Entitic mass ]on 03-01-2024 MCH (RBC) [Entitic mass] 31.8 pg 26.7-34.0 [facility] MCHC Auto (RBC) [Mass/Vol]on 03-01-2024 MCHC (RBC) [Mass/Vol] 33.2 g/dL 29.9-35.2 [facility] MCV Auto (RBC) [Entitic vol] on 03-01-2024 MCV (RBC) [Entitic vol] 95.9 fL 81.0-99.0 [facility] Monocytes Auto (Bld) [#/Vol] on 03-01-2024 Monocytes (Bld) [#/Vol] 0.3 10 3/uL 0.3-0.8 [facility] Monocytes/100 WBC Auto (Bld) on 03-01-2024 Monocytes/100 WBC (Bld) 7.0 % 1.7-12.0 [facility] Neutrophils Auto (Bld) [#/Vo l]on 03-01-2024 Neutrophils (Bld) [#/Vol] 1.8 10 3/uL 1.4-6.5 [facility] Neutrophils/100 WBC Auto (Bl d)on 03-01-2024 Neutrophils/100 WBC (Bld) 41.8 % Low 43.0-75.0 [facility] No Panel Informationon 03-01 Eosinophils # (Auto) 0.4 10 3/uL 0.0-0.7 [facility] Immature Granulocyte # (Auto) 0.00 10 3/uL 0.00-0.03 [facility] Platelet mean volume Auto (B ld) [Entitic vol]on 03-01-2024 Platelet mean volume (Bld) [Entitic vol] 10.6 fL 9.5-13.5 [facility] Platelets Auto (Bld) [#/Vol] on 03-01-2024 Platelets (Bld) [#/Vol] 209 10 3/uL 150-450 [facility] RBC Auto (Bld) [#/Vol]on RBC (Bld) [#/Vol] 4.37 10 6/uL 4.20-5.40 [facility] Serum or plasma albumin/glob ulin mass ratioon 03-01-2024 Albumin/Globulin [Mass ratio] 1.2 {ratio} [facility] Serum or plasma anion gap de terminationon 03-01-2024 Anion gap [Moles/Vol] 11.2 mmol/L [facility] Serum or plasma total choles terol/high density lipoprotein (HDL) cholesterol mass ag 03-01-2024 Cholesterol.total/Ch olesterol in HDL [Mass ratio] 2.0 {ratio} [facility] Comment on above: 3.3 - 4.4 LOW RISK4. 4 - 7.1 AVERAGE RISK7.1 - 11.0 MODERATE RISK>11.0 HIGH RISK IGP,APTIMA HPV,AGE GDLNon AGE GDLN ACOG TESTING Note . [facility] Comment on above: TESTS RESULT FLAG UN ITS REF RANGE LAB Clinician Provided Cytology Information Source.............Cervix No. of containers..01 ThinPrep Vial Age Lalito MARTINEZ Anju... FLAG LEGEND: L-Low Normal,H-High Normal,LL-Alert Low,HH-Alert High <-Panic Low,>-Panic High,A-Abnormal,AA-Critical Abnormal Performed at: 01 =[address] [address] Jen Brasher MD, HPV APTIMA Negative Negative [facility] Comment on above: This nucleic acid am plification test detects fourteen high- risk HPV types (16,18,31,33,35,39,45,51,52,56,58,59,66,68) without differentiation. Performed at: =[address] [id number] Onion Tier: Jen Brasher MD, Phone: [phone] Performed at: [facility] [id number] [place] [id number] Onion Tier: Jose Lizama MD, Phone: [phone] IGP, APTIMA HPV, RFX 16/18,45 Note . [facility] Comment on above: TESTS RESULT FLAG UN ITS REF RANGE LAB DIAGNOSIS: 02 NEGATIVE FOR INTRAEPITHELIAL LESION OR MALIGNANCY. CELLULAR CHANGES ASSOCIATED WITH ATROPHY ARE PRESENT. Specimen adequacy: 02 Satisfactory for evaluation. Endocervical component may not be distinguished in cases of atrophy. Performed by: 02 Kyra Rashid, Copier Repair Technician ([facility]) . 02 Note: Note 03 The Pap [...] High,A-Abnormal,AA-Critical Abnormal Performed at: 02 [facility] [address] [place] [address] Jose Lizama MD, 03 [facility] [address] [address] Jen Brasher MD, BRUSH-SPATULA CERVIX [facility] MG MAMM SCREEN 3D ALLISON CADon 09-26-2022 MG MAMM SCREEN 3D ALLISON CAD Patient: KYAR ARROYO Exam Date: 09/26/2022 : 1960 Gender:F Ordering : DR WILIAN GERMAIN . Admission #: [id number] Family : Order #: [id number] CLICK HERE TO VIEW EXAM RADIOLOGY REPORT [...] lung cancer at age 42. LOCATION: [facility] BREAST COMPOSITION: Scattered areas fibroglandular density. [...] Romo M.D. on 09/26/2022 at 10:23 Normal [facility] PAP ACOG PANEL 2: 30 to 65on 08-16-2022 . . Normal [facility] Comment on above: Result Comment: Perf ormed at: [facility] Performed By: #### [id number] #### [facility] [address] [address] [address] Ramin Ambrose Age Gdln ACOG Testing 30-65 Normal [facility] Comment on above: Performed By: #### [id number] #### [facility] [address] [address] [address] Ramin Ambrose DIAGNOSIS: Comment Normal [facility] Comment on above: Result Comment: NEGA TIVE FOR INTRAEPITHELIAL LESION OR MALIGNANCY. CELLULAR CHANGES ASSOCIATED WITH ATROPHY ARE PRESENT. Performed at: [facility] Performed By: #### [id number] #### [facility] [address] [address] [address] Ramin Ambrose HPV Aptima Negative Normal Negative [facility] Comment on above: Result Comment: This nucleic acid amplification test detects fourteen high-risk HPV types (16,18,31,33,35,39,45,51,52,56,58,59,66,68) without differentiation. Performed at: =G Performed By: #### [id number] #### [facility] [address] [place] [address] Dr. Ramin Ambrose HPV Genotype Reflex Comment Normal [facility] Comment on above: Result Comment: Crit eria not met, HPV Genotype not performed. Performed at: [facility] Performed By: #### [id number] #### [facility] [address] [place] [address] Dr. Ramin Ambrose Methodology: Comment Normal [facility] Comment on above: Result Comment: This liquid based ThinPrep(R) pap test was screened with the use of an image guided system. Performed at: [facility] Performed By: #### [id number] #### [facility] [address] [place] [address] Dr. Ramin Ambrose Note: Comment Normal [facility] Comment on above: Result Comment: The Pap smear is a screening test designed to aid in the detection of premalignant and malignant conditions of the uterine cervix. It is not a diagnostic procedure and should not be used as the sole means of detecting cervical cancer. Both false-positive and false-negative reports do occur. . Performed at: [facility] Performed By: #### [id number] #### [facility] [address] [place] [address] Dr. Ramin Ambrose Performed by: Comment Normal [facility] Comment on above: Result Comment: Og Velazco, Copier Repair Technician (ASCP) Performed at: [facility] Performed By: #### [id number] #### [facility] [address] [place] [address] Dr. Ramin Ambrose Specimen adequacy: Comment Normal [facility] Comment on above: Result Comment: Sati sfactory for evaluation. Endocervical component may not be distinguished in cases of atrophy. Performed at: [facility] Performed By: #### [id number] #### [facility] [address] [place] [address] ABDOMEN WO/W CONon [...] MAICOL ROMO Date: 2022-03-29 16:19 Normal [facility] CBC AUTO DIFFon 03-03-2022 BASO # 0.1 103/ul Normal 0.0-0.1 [facility] Comment on above: Performed By: #### H FPFCBC #### [facility] [address] [place] [address] Dr. Ramin Ambrose Basophils/100 WBC (Bld) 1.7 % Normal 0.2-2.0 [facility] Comment on above: Performed By: #### H FPFCBC #### [facility] [address] [place] [address] Dr. Ramin Ambrose EO # 0.3 103/ul Normal 0.0-0.7 [facility] Comment on above: Performed By: #### H FPFCBC #### [facility] [address] [place] [address] Dr. Ramin Ambrose Eosinophils/100 WBC (Bld) 7.4 % Critically high 0.9-7.0 [facility] Comment on above: Performed By: #### H FPFCBC #### [facility] [address] [place] [address] Dr. Ramin Ambrose Erythrocyte distribution width (RBC) [Ratio] 12.1 % Normal 11.0-15.0 [facility] Comment on above: Performed By: #### H FPFCBC #### [facility] [address] [place] [address] Dr. Ramin Ambrose Hematocrit (Bld) [Volume fraction] 40.5 % Normal 36.0-48.0 [facility] Comment on above: Performed By: #### H FPFCBC #### [facility] [address] [place] [address] Dr. Ramin Ambrose Hemoglobin (Bld) [Mass/Vol] 13.4 g/dL Normal 12.0-16.0 [facility] Comment on above: Performed By: #### H FPFCBC #### [facility] [address] [place] [address] Dr. Ramin Ambrose IG # 0.00 10e3/ul Normal 0.00-0.03 [facility] Comment on above: Performed By: #### H FPFCBC #### [facility] [address] [place] [address] Dr. Ramin Ambrose IG % 0.0 % Normal 0.0-0.5 [facility] Comment on above: Performed By: #### H FPFCBC #### [facility] [address] [place] [address] Dr. Ramin Ambrose LYMPH # 1.6 103/ul Normal 1.2-3.8 [facility] Comment on above: Performed By: #### H FPFCBC #### [facility] [address] [place] [address] Dr. Ramin Ambrose Lymphocytes/100 WBC (Bld) 38.2 % Normal 20.5-60.0 [facility] Comment on above: Performed By: #### H FPFCBC #### [facility] [address] [place] [address] Dr. Ramin Ambrose MCH (RBC) [Entitic mass] 31.2 pg Normal 26.7-34.0 [facility] Comment on above: Performed By: #### H FPFCBC #### [facility] [address] [place] [address] Dr. Ramin Ambrose MCHC (RBC) [Mass/Vol] 33.1 g/dL Normal 29.9-35.2 [facility] Comment on above: Performed By: #### H FPFCBC #### [facility] [address] [place] [address] Dr. Ramin Ambrose MCV (RBC) [Entitic vol] 94.4 fL Normal 81.0-99.0 [facility] Comment on above: Performed By: #### H FPFCBC #### [facility] [address] [place] [address] Dr. Ramin Ambrose MONO # 0.3 103/ul Normal 0.3-0.8 [facility] Comment on above: Performed By: #### H FPFCBC #### [facility] [address] [place] [address] Dr. Ramin Ambrose Monocytes/100 WBC (Bld) 7.4 % Normal 1.7-12.0 [facility] Comment on above: Performed By: #### H FPFCBC #### [facility] [address] [place] [address] Dr. Ramin Ambrose NEUT # 1.8 103/ul Normal 1.4-6.5 [facility] Comment on above: Performed By: #### H FPFCBC #### [facility] [address] [place] [address] Dr. Ramin Ambrose Neutrophils/100 WBC (Bld) 45.3 % Normal 43.0-75.0 [facility] Comment on above: Performed By: #### H FPFCBC #### [facility] [address] [place] [address] Dr. Ramin Ambrose Platelet mean volume (Bld) [Entitic vol] 9.9 fL Normal 9.5-13.5 [facility] Comment on above: Performed By: #### H FPFCBC #### [facility] [address] [place] [address] Dr. Ramin Ambrose PLT 233 103/ul Normal 150-450 [facility] Comment on above: Performed By: #### H FPFCBC #### [facility] [address] [place] [address] Dr. Ramin Ambrose RBC 4.29 106/ul Normal 4.20-5.40 [facility] Comment on above: Performed By: #### H FPFCBC #### [facility] [address] [address] [address] Ramin Ambrose WBC 4.1 103/ul Normal 4.0-11.0 [facility] Comment on above: Performed By: #### H FPFCBC #### [facility] [address] [place] [address] Dr. Ramin Ambrose [facility] PROFILEon 022 Albumin [Mass/Vol] 4.2 g/dL Normal 3.4-5.0 [facility] Comment on above: Performed By: #### H FPF #### [facility] [address] [place] [address] Dr. Ramin Ambrose Albumin/Globulin [Mass ratio] 1.2 {ratio} Normal [facility] Comment on above: Performed By: #### H FPF #### [facility] [address] [place] [address] Dr. Ramin Ambrose ALP [Catalytic activity/Vol] 63 U/L Normal 46-116 [facility] Comment on above: Performed By: #### H FPF #### [facility] [address] [place] [address] Dr. Ramin Ambrose ALT [Catalytic activity/Vol] 28 U/L Normal 14-59 [facility] Comment on above: Performed By: #### H FPF #### [facility] [address] [place] [address] Dr. Ramin Ambrose AST [Catalytic activity/Vol] 28 U/L Normal 15-37 [facility] Comment on above: Performed By: #### H FPF #### [facility] [address] [address] [address] Ramin Ambrose Bilirubin [Mass/Vol] 0.6 mg/dL Normal 0.2-1.0 [facility] Comment on above: Performed By: #### H FPF #### [facility] [address] [address] [address] Ramin Ambrose Calcium [Mass/Vol] 9.2 mg/dL Normal 8.5-10.1 [facility] Comment on above: Performed By: #### H FPF #### [facility] [address] [address] [address] Ramin Ambrose Chloride [Moles/Vol] 105 mmol/L Normal 98-107 [facility] Comment on above: Performed By: #### H FPF #### [facility] [address] [place] [address] Dr. Ramin Ambrose CHOL-HDL RATIO NORM SEE BELOW Normal [facility] Comment on above: Result Comment: 3.3 - 4.4 LOW RISK 4.4 - 7.1 AVERAGE RISK 7.1 - 11.0 MODERATE RISK >11.0 HIGH RISK Performed By: #### H FPF #### [facility] [address] [place] [address] Dr. Ramin Ambrose Cholesterol [Mass/Vol] 172 mg/dL Normal <=200 [facility] Comment on above: Performed By: #### H FPF #### [facility] [address] [place] [address] Dr. Ramin Ambrose Cholesterol in HDL [Mass/Vol] 79 mg/dL Critically high 40-60 [facility] Comment on above: Performed By: #### H FPF #### [facility] [address] [address] [address] Ramin Ambrose Cholesterol in LDL [Mass/Vol] 85.8 mg/dL Normal [facility] Comment on above: Performed By: #### H FPF #### [facility] [address] [place] [address] Dr. Ramin Ambrose Cholesterol.total/Ch olesterol in HDL [Mass ratio] 2.2 {ratio} Normal [facility] Comment on above: Performed By: #### H FPF #### [facility] [address] [address] [address] Ramin Ambrose CO2 [Moles/Vol] 28.6 mmol/L Normal 21.0-32.0 [facility] Comment on above: Performed By: #### H FPF #### [facility] [address] [address] [address] Ramin Ambrose Creatinine [Mass/Vol] 1.12 mg/dL Critically high 0.55-1.02 [facility] Comment on above: Performed By: #### H FPF #### [facility] [address] [address] [address] Ramin Ambrose Globulin (S) [Mass/Vol] 3.5 g/dL Normal [facility] Comment on above: Performed By: #### H FPF #### [facility] [address] [place] [address] Dr. Ramin Ambrose Glucose [Mass/Vol] 78 mg/dL Normal 74-106 [facility] Comment on above: Performed By: #### H FPF #### [facility] [address] [address] [address] Ramin Ambrose HDL NORMAL > or = 60 mg/dl - LO W CARDIOVASCULAR RISK <40 mg/dl - HIGH CARDIOVASCULAR RISK Normal [facility] Comment on above: Performed By: #### H FPF #### [facility] [address] [place] [address] Dr. Ramin Ambrose LDL CALC NORMAL SEE BELOW Normal [facility] Comment on above: Result Comment: <100 mg/dl OPTIMAL 100 - 129 mg/dl NEAR OR ABOVE OPTIMAL 130 - 159 mg/dl BORDERLINE HIGH 160 - 189 mg/dl HIGH >190 mg/dl VERY HIGH Performed By: #### H FPF #### [facility] [address] [place] [address] Dr. Ramin Ambrose Potassium [Moles/Vol] 3.8 mmol/L Normal 3.5-5.1 [facility] Comment on above: Performed By: #### H FPF #### [facility] [address] [id number] [address] Ramin Ambrose Protein [Mass/Vol] 7.7 g/dL Normal 6.4-8.2 [facility] Comment on above: Performed By: #### H FPF #### [facility] [address] [address] [address] Ramin Ambrose Sodium [Moles/Vol] 142 mmol/L Normal 136-145 [facility] Comment on above: Performed By: #### H FPF #### [facility] [address] [address] [address] Ramin Ambrose Triglyceride [Mass/Vol] 36 mg/dL Normal <=150 [facility] Comment on above: Performed By: #### H FPF #### [facility] [address] [address] [address] Ramin Ambrose TSH 1.448 uIU/mL Normal 0.358-3.740 [facility] Comment on above: Performed By: #### H FPF #### [facility] [address] [address] [address] Ramni Ambrose Urea nitrogen [Mass/Vol] 14.0 mg/dL Normal 7.0-18.0 [facility] Comment on above: Performed By: #### H FPF #### [facility] [address] [address] [address] Ramin Ambrose Urea nitrogen/Creatinine [Mass ratio] 12.5 mg/mg Normal [facility] Comment on above: Performed By: #### H FPF #### [facility] [address] [address] [address] Ramin Ambrose VLDL CALC 7.2 mg/dL Normal [facility] Comment on above: Performed By: #### H FPF #### [facility] [address] [id number] Ramin Ambrose Vital Signs Date Time Vital Sign Value Performing Clinician Facility 03-25-2024 15:13 Body height 160.02 cm [facility] 03-25-2024 15: Body mass index (BMI) [Ratio] 25.5 kg/m2 [facility] 03-25-2024 15:13-0400 Body weight 65.48 kg [facility] 03-25-2024 15:13-0400 Diastolic blood pressure 81 mm[Hg] [facility] 03-25-2024 15:13-0400 Heart rate 59 /min [facility] 03-25-2024 15:13-0400 Respiratory rate 12 /min [facility] 03-25-2024 15:13-0400 Systolic blood pressure 127 mm[Hg] [facility] 06-02-2023 12:44-0500 Diastolic blood pressure 72 mm[Hg] DO Justus Ball Work Phone: [facility] 06-02-2023 12:44-0500 Heart rate 63 /min DO Justus Ball Work Phone: [facility] 06-02-2023 12:44-0500 Respiratory rate 18 /min DO Justus Ball Work Phone: [facility] 06-02-2023 12:44-0500 SaO2% (BldA) [Mass fraction] 98 % DO Justus Ball Work Phone: [facility] 06-02-2023 12:44-0500 Systolic blood pressure 119 mm[Hg] DO Justus Ball Work Phone: [facility] 06-02-2023 10:40-0500 Body height 160.02 cm DO Justus Ball Work Phone: [facility] 06-02-2023 10:40-0500 Body weight 61.23 kg DO Justus Ball Work Phone: [facility] 03-16-2023 11:30-0400 Body height 165.1 cm Justus Ball Other [facility] [employer] Other 03-16-2023 11:30-0400 Body mass index (BMI) [Ratio] 24.69 kg/m2 Justus Ball Other [facility] [employer] Other 03-16-2023 11:30-0400 Body weight 67.31 kg Justus Hilario Other [employer] Other 03-16-2023 11:30-0400 Diastolic blood pressure 74 mm[Hg] Justus Hilario Other [employer] Other 03-16-2023 11:30-0400 Respiratory rate 12 /min Justus Hilario Other [employer] Other 03-16-2023 11:30-0400 Systolic blood pressure 120 mm[Hg] [facility] Other [employer] Other Encounters Encounter Date Encounter Type Care Provider Facility Start: 03-25-2024 End: 03-25-2024 ambulatory [facility] Work Phone: Start: 03-25-2024 End: 03-25-2024 Encounter for general adult medical examination without abnormal findings [facility] Start: 03-25-2024 End: 03-25-2024 Patient encounter procedure [facility] Physician [facility] Work Phone: Start: 03-21-2024 Patient encounter status [facility] Start: 03-01-2024 Non-patient / Non-visit [facility] [employer] Work Phone: Start: 08-15-2023 Clinisync Result Encounter Wilian Jessa DO Work Phone: [facility] Unsolicited Start: 08-15-2023 Clinisync Result Encounter Wilian Jessa DO Work Phone: [facility] Unsolicited Start: 08-15-2023 End: 08-15-2023 ambulatory WILIAN JESSA Not Available Start: 06-22-2023 End: 06-22-2023 ambulatory Luis Alberto Davalos Other [employer] Other Start: 06-22-2023 Telephone encounter Luis Alberto LATHAM [facility] [employer] Start: 06-06-2023 End: 06-06-2023 ambulatory Justus Hilario Other [employer] Other Start: 06-06-2023 Telephone encounter Justus LATHAM G [facility] Start: 06-02-2023 End: 06-02-2023 ambulatory uJstus Hilario Facility:[facility] Start: 06-02-2023 End: 06-02-2023 Admission to same day surgery center DO Justus Hilario Work Phone: [facility] Work Phone: Start: 06-02-2023 End: 06-02-2023 ambulatory DO Justus Hilario Work Phone: [facility] Work Phone: Start: 03-31-2023 End: 03-31-2023 ambulatory Imad Asaad Other [employer] Other Start: 03-31-2023 Telephone encounter Imad Asaad [facility] [employer] Start: 03-16-2023 End: 03-16-2023 ambulatory Justus Hilario Other [employer] Other Start: 03-16-2023 Encounter for genera l adult medical examination without abnormal findings Justus Hilario [facility] Start: 03-16-2023 Periodic preventive med est patient 40-64yrs Justus Hilario [facility] Start: 09-26-2022 End: 09-27-[address] WILIAN GERMAIN . Facility:[facility] Start: 08-09-2022 End: 08-09-[address] WILIAN GERMAIN . Facility:[facility] Start: 03-29-2022 End: 03-30-[address] JUSTUS HILARIO Facility:[facility] Start: 03-03-2022 End: 03-04-[address] JUSTUS HILARIO Facility:[facility] Procedures Date Procedure Procedure Detail Performing Clinician Start: 08-15-2023 IGP,APTIMA HPV,AGE GDLN Wilian Germain DO Work Phone: Start: 11-17-2023 Screening colonoscopy D O Justus Hilario Work Phone: Start: 09-26-2022 Mammography Wiliangaviota Reyez sarah [place] Work Phone: Screening for malign ant neoplasm of colon Justus Hilario Other Plan of Treatment Date Care Activity Detail Author Start: 08-20-2024 End: 08-20-2024 Patient encounter procedure 08/20/2024 8:30 AM EST Office Visit [facility] [address] [address] Wilian Germain, DO [address] [place] [address] [facility] Start: 09-27-2023 Screening for malign ant neoplasm of breast Mammogram [facility] Start: 06-02-2023 [facility] Start: 03-17-2023 Influenza vaccination Influenza Vacc ine (#1) [facility] Start: 1992 Screening for malign ant neoplasm of cervix [facility] Start: 1983 Screening for malign ant neoplasm of cervix Pap Smear [facility] Start: 1960 Screening for malign ant neoplasm of colon [facility] Patient Education Hemorrhoids (DC) [facility] Work Phone: Payers Date Payer Category Payer Self-pay 2023 Unknown [employer] [id number] 2023-Present [address] [place] [address] [id number] 1960 Unknown [id number] 1960 Unknown [id number] 1960 Unknown [id number] 1960 Unknown [id number] 1959 Self-pay [id number] 1959 Unknown [id number] Unknown [id number] Unknown [id number] Social History Date Type Detail Facility Start: 07-26-2023 Sex Assigned At N [facility] [employer] Other Start: 1960 Sex Assigned At Female F [facility] Start: 07-26-2023 Tobacco smoking status NHIS Never smoked tobacco [facility] Start: 08-15-2023 Alcohol intake Current drinke r of alcohol (finding) [facility] Start: 07-26-2023 History of Social function [facility] Start: 07-26-2023 Alcohol Comment caffeine 1-2 c ups per day coffee [facility] Start: 08-08-2023 Gender identity Identifies as female gender (finding) [facility] Healthcare Goals Date Patient Goal Desired Activity /State Procedure note 06-02-2023 Note Date & Type Note Facility 06-02-2023 Procedure note [facility] Evaluation note 03-16-2023 Note Date & Type [...] she denies abdominal pain, melena or hematochezia [facility] [employer] Other Evaluation note Note Date & Type Note Facility Evaluation note No Information [facility] Strategic Funding Source Other Evaluation note Note Date & Type Note Facility Evaluation note No assessment information availa ble [facility] Work Phone: Evaluation note Note Date & Type Note Facility Evaluation note Diagnosis Onset Date Hypothyroidism acute Screening mammogram for breast cancer acute Wellness examination acute [facility] Work Phone: History and physical note Note Date & Type Note Facility History and physical note Note Date/Time June 02, 2023 11:47am [facility] [address] [place] [address] Gastroenterology H&P Signed Patient: Kyra Arroyo MR#: [id number] 0 : 1960 Acct:[id number] Age/Sex: 62 / F Adm Date: 3 Loc: Room: Type: [facility] Attending Dr: Silvestre Escalona MD Copies to: DO Silvestre Esteban MD~ Date of Service: 06/02/2023 HISTORY & [...] <Electronically signed by Silvestre Escalona MD> 06/02/23 1143 [facility] Work Phone: History general Narrative - Reported Note Date & Type Note Facility History general Narrative - Reported Type Medical History Pyuria Medical History Postablative hypothyroidism Medical History Renal cyst Medical History Left renal mass Surgical History Delivery Surgical History Essure Procedure Surgical History Excision BCC Surgical History Tubal Ligation Surgical History Colonoscopy 2012 Surgical History BTL 2007 Hospitalization History [facility] Other History general Narrative - Reported Note [...] History Colonoscopy 05/2023 Hospitalization History [facility] Other Hospital Discharge instructions Note Date & [...] NOT operate machinery such as power tools, lawn mowers, snow blowers, sewing machines, etc. for 24 hours. - [...] years. -Follow up with PCP. -Office number [phone]. [facility] Work Phone: Reason for referral (narrative) Note Date & Type Note Facility Reason for referral (narrative) Diagnosis 1 Screening for colon cancer (Z12.11) Referral Organization [facility] Alejandra ramirez Referring Provider First Name Justus Referring Provider Last Name Sulaiman Referring Provider Specialty Internal Medicine Referred Organization [facility] Referred Provider Silvestre Escalona Referred Address [address] [place] [id number] Referred Provider Specialty Gastroenterology Referral Priority Routine General Notes Mrs. Arroyo is an asym ptomatic, low risk patient who is due for a screening colonoscopy. Her last colonoscopy was in 2012. She denies change in appetite, weight or bowel habits. She denies N/V, heartburn or dysphagia. She denies abdominal pain, melena or hematochezia Merle Lowery 03/16/2023 04:26:24 PM >recieved today, sent P2P [employer] Other Summary Purpose Family History Relationship Condition Age at Onset Recorded Date/T sharon father Non-Hodgkin's lymphoma Unknown Not Specified Malignant neoplasm of lung Unknown sister Malignant neoplasm of lung Unknown Relationship Condition Age at Onset Recorded Date/T sharon father Non-Hodgkin's lymphoma Unknown mother Malignant neoplasm of lung Unknown sister Malignant neoplasm of lung Unknown mother Unknown Family history of lung cancer Unknown Malignant neoplasm Unknown Advance Directives Advance Directive Response Recorded Date/ Time Advance Directives No May 1:09pm Advance Directive Response Recorded Date/ Time Advance Directives No May 2:09pm Chief Complaint and Reason for Visit Chief Complaint Screening Chief Complaint wellness Reason for Visit Hypothyroidism Screening mammogram for breast cancer Wellness examination Additional Source Comments INFORMATION SOURCE (unrecogn ized section and content) DATE CREATED AUTHOR 09/27/2022 [facility] DATE CREATED AUTHOR AUTHOR'S ORGANIZ ATION 06/14/2023 [facility] DATE CREATED AUTHOR AUTHOR'S ORGANIZ ATION 08/16/2023 [facility] EPIC REASON FOR VISIT (unrecogniz ed section and content) WellnessMAIL PPWNo Informati onGASTRO OP REPORT Care Teams (unrecognized sec tion and content) Team Status: Active Member Role Status Dates Justus Hilario DO Primary Care Provider Active Team Status: Active Member Role Status Dates Justus Hilario DO Primary Care Provide r, Attending Provider Active Start: March 01, 2024 Team Status: Inactive Member Role Status Dates Justus Hilario DO Primary Care Provide r, Attending Provider Active Start: March 25, 2024 End: March 25, 2024 Team Status: Active Member Role Status Danica Hilario DO Primary Care Provider Active Team Status: Inactive Member Role Status Dates Silvestre Escalona MD Attending Provider Active Justus Hilario DO Primary Care Provider Active Product Safety Expert Relationship Specialty Start Date End Date Justus Hilario MD [address] [place] [address] PCP - General 08/08/23 Team Status: Active Member Role Status Dates Justus Hilario DO Primary Care Provide r, Attending Provider Active Start: March 01, 2024 Team Status: Inactive Member Role Status Dates Justus Hilario DO Primary Care Provide r, Attending Provider Active Start: March 25, 2024 End: March 25, 2024 Goals (unrecognized section and content) Goals may be documented in a n alternate section FOR RECORDS PERTAINING TO PATIENTS WHO ARE [...] BE BASED ON THE PRIMARY CLINICAL RECORDS. [facility] [employer] [facility]. provides no warranty or guarantee of the accuracy or completeness of information in this document.
--- NOTE | 2024-06-28 08:39 | XR_ITS ---
The [address] [address] Patient Name: ROCIO PETE MRN: [id number] date: 1960 Sex: F Assigned Patient Location: [facility] Current Patient Location: Accession/Order Number: [id number] Exam Date: 06/28/2024 08:30 Report Date: 07/01/2024 07:21 At the request of: SANAZ MCCLURE Procedure: XR ribs RT min 3V w CXR1V EXAMINATION: XR ribs RT min 3V w CXR1V HISTORY: CHEST WALL PAIN COMPARISON: No relevant comparison available. FINDINGS: LUNGS: No significant pulmonary parenchymal abnormalities. PLEURA: No pneumothorax, effusion, or pleural thickening. MEDIASTINUM: No visible mass or adenopathy. CARDIAC: No cardiomegaly or cardiac silhouette abnormality. RIBS: No acute rib fracture OTHER: Negative. XR/XR ribs RT min 3V w CXR1V IMPRESSION: Clear lungs No acute rib fracture Electronically authenticated by: YOHANNES AUGUSTIN Date: 07/01/2024 07:21
== END 2024-06-28 08:23 | disposition home or self-care (01) ==
LOC: RAD 08:23
PROVIDERS: PCP Internal Medicine; Visit Provider Internal Medicine
DX: R07.89 Other chest pain (principal)
CPT/HCPCS: 71101

== ENCOUNTER 2024-08-20 20:06 | Outpatient (REF) | payer OTHER, SELFPAY ==
--- OUTSIDE RECORDS SUMMARY | 2024-08-20 20:09 | XMS_ITS | CCD ---
Author Organization [facility] Care Team Providers Care Plodder Operator Name Role Phone JESSA ., DR CEDENO Admitting Unavailable JESSA ., DR CEDENO Attending Unavailable SULAIMAN, DR YO Primary Care Unavailable JESSA ., DR CEDENO Consulting Unavailable ZIEBER, DR MAICOL Mac Consulting Unavailable SULAIMAN, DR YO Admitting Unavailable SULAIMAN, DR YO Attending Unavailable SULAIMAN, DR YO Primary Care Unavailable SULAIMAN, DR YO Consulting Unavailable MARINAEBNIC, DR MAICOL Mac Consulting Unavailable SULAIMAN, DR YO Admitting Unavailable SULAIMAN, DR YO Attending Unavailable SULAIMAN, DR YO Primary Care Unavailable SULAIMAN, DR YO Consulting Unavailable JESSA ., DR CEDENO Admitting Unavailable JESSA ., DR CEDENO Attending Unavailable BALL, DR YO Primary Care Unavailable JESSA ., DR CEDENO Consulting Unavailable Justus Hilario Unavailable Silvestre Escalona Unavailable MD Silvestre Escalona Attending Provider DO Justus Hilario Primary Care Provider Justus Hilario Primary Care Unavailable Silvestre Escalona Attending Unavailable Pola, Silvestre Admitting Unavailable Luis Alberto Davalos Unavailable WILIAN GERMAIN Attending Unavailable Justus Hilario MD Primary Care Provider Medications Current Medications Medication Drug Class(es) Dates Sig (Normalized) Sig (Original) levonorgestrel 0.661437 mg/hr intrauterine system (4 sources) Progestin, Progestin-containi ng Intrauterine Device Start: 03-13-2022 Mirena (52 MG) 20 MCG/DAY as directed Intrauterine for 0 days Feb, Active levothyroxine sodium 0.1 mg oral tablet (10 sources) l-Thyroxine Start: 02-06-2024 End: 03-21-2024 Levothyroxine Active 0 .ROUTE .COMPLEX 90 90 March 21, 2024 9:38pm TAKE 1 TABLET DAILY MONDAY-MONDAY AND 1/2 TABLET ON MONDAY Start: 06-02-2023 End: 02-06-2024 take 1 tablet by mouth before mealtime levothyroxine (Synthroid, Levoxyl) 100 MCG tablet Take 100 mcg by mouth in the morning. Take before meals. 06/02/2023 Active Levothyroxine So dium 100 MCG TAKE 1 TABLET DAILY Orally Once a day for 10 days Active polyethylene glycol 3350 [id number] mg / potassium chloride 2970 mg / sodium bicarbonate 6740 mg / sodium chloride 5860 mg / sodium sulfate 18996 mg powder for oral solution (3 sources) [...] Basophils (Bld) [#/Vol] 0.1 10 3/uL 0.0-0.1 [facility] Basophils/100 WBC Auto (Bld) on 03-01-2024 Basophils/100 WBC (Bld) 1.4 % 0.2-2.0 [facility] Cholesterol in LDL Calc [Mas s/Vol]on 03-01-2024 Cholesterol in LDL [Mass/Vol] 68.0 mg/dL [facility] Comment on above: <100 mg/dl [id number] 0-129 mg/dl NEAR OR ABOVE [id number] mg/dl BORDERLINE [id number] mg/dl HIGH>190 mg/dl VERY HIGH Cholesterol in VLDL Calc [Ma ss/Vol]on 03-01-2024 Cholesterol in VLDL [Mass/Vol] 6.8 mg/dL [facility] Eosinophils/100 WBC Auto (Bl d)on 03-01-2024 Eosinophils/100 WBC (Bld) 8.2 % High 0.9-7.0 [facility] Erythrocyte distribution wid th Auto (RBC) [Ratio]on 03-01-2024 Erythrocyte distribution width (RBC) [Ratio] 11.4 % 11.0-15.0 [facility] Estimated glomerular filtrat ion rate (GFR) non- Americanon 03-01-2024 GFR/1.73 sq M.predicted among non-blacks MDRD (S/P/Bld) [Vol rate/Area] mL/min/{1.73_m2} >=60 [facility] Globulin Calc (S) [Mass/Vol] on 03-01-2024 Globulin (S) [Mass/Vol] 3.3 g/dL [facility] Hematocrit Auto (Bld) [Volum e fraction]on 03-01-2024 Hematocrit (Bld) [Volume fraction] 41.9 % 36.0-48.0 [facility] Hemoglobin [Mass/volume] in Bloodon 03-01-2024 Hemoglobin (Bld) [Mass/Vol] 13.9 g/dL 12.0-16.0 [facility] Laboratory - Chemistry and C hemistry - challengeon 03-01-2024 Albumin [Mass/Vol] 3.9 g/dL 3.4-5.0 [facility] ALP [Catalytic activity/Vol] 54 U/L 46-116 [facility] ALT [Catalytic activity/Vol] 32 U/L 14-59 [facility] AST [Catalytic activity/Vol] 27 U/L 15-37 [facility] Bilirubin [Mass/Vol] 0.4 mg/dL 0.2-1.0 [place] Calcium [Mass/Vol] 9.3 mg/dL 8.5-10.1 [facility] Chloride [Moles/Vol] 107 mmol/L 98-107 [place] Cholesterol [Mass/Vol] 150 mg/dL <=200 [facility] Cholesterol in HDL [Mass/Vol] 76 mg/dL High 40-60 [facility] Comment on above: > or =60 mg/dl - LOW CARDIOVASCULAR RISK<40 mg/dl - HIGH CARDIOVASCULAR RISK CO2 [Moles/Vol] 29.6 mmol/L 21.0-32.0 [facility] Creatinine [Mass/Vol] 0.86 mg/dL 0.55-1.02 [facility] GFR/1.73 sq M.predicted MDRD (S/P/Bld) [Vol rate/Area] mL/min/{1.73_m2} >=60 [facility] Glucose [Mass/Vol] 79 mg/dL 74-106 [facility] Potassium [Moles/Vol] 4.8 mmol/L 3.5-5.1 [facility] Protein [Mass/Vol] 7.2 g/dL 6.4-8.2 [facility] Sodium [Moles/Vol] 143 mmol/L 136-145 [facility] Triglyceride [Mass/Vol] 34 mg/dL <=150 [facility] TSH Qn 0.064 m[IU]/L Low 0.358-3.740 [facility] Urea nitrogen [Mass/Vol] 19.0 mg/dL High 7.0-18.0 [facility] Urea nitrogen/Creatinine [Mass ratio] 22.1 mg/mg [facility] Laboratory - Hematology and Cell countson 03-01-2024 Immature granulocytes/100 WBC (Bld) 0.0 % 0.0-0.5 [facility] Leukocytes [#/volume] correc mercy for nucleated erythrocytes in Blood by Automated counon 03-01-2024 WBC corrected for nucl RBC Auto (Bld) [#/Vol] 4.3 10 3/uL 4.0-11.0 [facility] Lymphocytes Auto (Bld) [#/Vo l]on 03-01-2024 Lymphocytes (Bld) [#/Vol] 1.8 10 3/uL 1.2-3.8 [facility] Lymphocytes/100 WBC Auto (Bl d)on 03-01-2024 Lymphocytes/100 WBC (Bld) 41.6 % 20.5-60.0 [facility] MCH Auto (RBC) [Entitic mass ]on 03-01-2024 MCH (RBC) [Entitic mass] 31.8 pg 26.7-34.0 [facility] MCHC Auto (RBC) [Mass/Vol]on 03-01-2024 MCHC (RBC) [Mass/Vol] 33.2 g/dL 29.9-35.2 [facility] MCV Auto (RBC) [Entitic vol] on 03-01-2024 MCV (RBC) [Entitic vol] 95.9 fL 81.0-99.0 [facility] Monocytes Auto (Bld) [#/Vol] on 03-01-2024 Monocytes (Bld) [#/Vol] 0.3 10 3/uL 0.3-0.8 [facility] Monocytes/100 WBC Auto (Bld) on 03-01-2024 Monocytes/100 WBC (Bld) 7.0 % 1.7-12.0 [facility] Neutrophils Auto (Bld) [#/Vo l]on 03-01-2024 Neutrophils (Bld) [#/Vol] 1.8 10 3/uL 1.4-6.5 [facility] Neutrophils/100 WBC Auto (Bl d)on 03-01-2024 Neutrophils/100 WBC (Bld) 41.8 % Low 43.0-75.0 [facility] No Panel Informationon 03-01 Eosinophils # (Auto) 0.4 10 3/uL 0.0-0.7 [facility] Immature Granulocyte # (Auto) 0.00 10 3/uL 0.00-0.03 [facility] Platelet mean volume Auto (B ld) [Entitic vol]on 03-01-2024 Platelet mean volume (Bld) [Entitic vol] 10.6 fL 9.5-13.5 [facility] Platelets Auto (Bld) [#/Vol] on 03-01-2024 Platelets (Bld) [#/Vol] 209 10 3/uL 150-450 [facility] RBC Auto (Bld) [#/Vol]on RBC (Bld) [#/Vol] 4.37 10 6/uL 4.20-5.[address] [facility] Serum or plasma albumin/glob ulin mass ratioon 03-01-2024 Albumin/Globulin [Mass ratio] 1.2 {ratio} [facility] Serum or plasma anion gap de terminationon 03-01-2024 Anion gap [Moles/Vol] 11.2 mmol/L [facility] Serum or plasma total choles terol/high density lipoprotein (HDL) cholesterol mass ag 03-01-2024 Cholesterol.total/Ch olesterol in HDL [Mass ratio] 2.0 {ratio} [facility] Comment on above: 3.3 - 4.4 LOW RISK4. 4 - 7.1 AVERAGE RISK7.1 - 11.0 MODERATE RISK>11.0 HIGH RISK IGP,APTIMA HPV,AGE GDLNon AGE GDLN ACOG TESTING Note . [facility] Comment on above: TESTS RESULT FLAG UN ITS REF RANGE LAB Clinician Provided Cytology Information Source.............Cervix No. of containers..01 ThinPrep Vial Age Lalito MARTINEZ Anju... 32 FLAG LEGEND: L-Low Normal,H-High Normal,LL-Alert Low,HH-Alert High <-Panic Low,>-Panic High,A-Abnormal,AA-Critical Abnormal Performed at: 01 =G [address] [phone] Jen Brasher MD, HPV APTIMA Negative Negative [facility] Comment on above: This nucleic acid am plification test detects fourteen high- risk HPV types (16,18,31,33,35,39,45,51,52,56,58,59,66,68) without differentiation. Performed at: =[address] [id number] Compressor Operator Portable: Jen Brasher MD, Phone: [phone] Performed at: [facility] [id number] [place] [id number] Compressor Operator Portable: Jose Lizama MD, Phone: [phone] IGP, APTIMA HPV, RFX 16/18,45 Note . [facility] Comment on above: TESTS RESULT FLAG UN ITS REF RANGE LAB DIAGNOSIS: 02 NEGATIVE FOR INTRAEPITHELIAL LESION OR MALIGNANCY. CELLULAR CHANGES ASSOCIATED WITH ATROPHY ARE PRESENT. Specimen adequacy: 02 Satisfactory for evaluation. Endocervical component may not be distinguished in cases of atrophy. Performed by: 02 Kyra Rashid, Flat Sorting Machine Clerk ([facility]) . 02 Note: Note 03 The Pap [...] High,A-Abnormal,AA-Critical Abnormal Performed at: 02 [facility] [place] [facility] [id number] [place] [id number] Jose Lizama MD, 03 WB [facility] [address] [phone] Jen Brasher MD, BRUSH-SPATULA CERVIX [facility] MG MAMM SCREEN 3D ALLISON CADon 09-26-2022 MG MAMM SCREEN 3D ALLISON CAD Patient: KYRA ARROYO Exam Date: 09/26/2022 : 1960 Gender:F Ordering : DR WILIAN GERMAIN . Admission #: [id number] Family : Order #: [id number] CLICK HERE TO VIEW EXAM RADIOLOGY REPORT [...] lung cancer at age 42. LOCATION: [facility] BREAST COMPOSITION: Scattered areas fibroglandular density. [...] Maicol Romo M.D. on 09/26/2022 at 10:23 [facility] PAP ACOG PANEL 2: 30 to 65on 08-16-2022 . . Normal [facility] Comment on above: Result Comment: Perf ormed at: [facility] Performed By: #### [id number] #### [facility] [address] [address] [address] Ramin Ambrose Age Gdln ACOG Testing 30-65 Normal [facility] Comment on above: Performed By: #### [id number] #### [facility] [address] [address] [address] Ramin Ambrose DIAGNOSIS: Comment Normal [facility] Comment on above: Result Comment: NEGA TIVE FOR INTRAEPITHELIAL LESION OR MALIGNANCY. CELLULAR CHANGES ASSOCIATED WITH ATROPHY ARE PRESENT. Performed at: [facility] Performed By: #### [id number] #### [facility] [address] [place] [address] Dr. Ramin Ambrose HPV Aptima Negative Normal Negative [facility] Comment on above: Result Comment: This nucleic acid amplification test detects fourteen high-risk HPV types (16,18,31,33,35,39,45,51,52,56,58,59,66,68) without differentiation. Performed at: =G Performed By: #### [id number] #### [facility] [address] [place] [address] Dr. Ramin Ambrose HPV Genotype Reflex Comment Normal [facility] Comment on above: Result Comment: Crit eria not met, HPV Genotype not performed. Performed at: [facility] Performed By: #### 4 [id number] #### [facility] [address] [place] [address] Dr. Ramin Ambrose Methodology: Comment Normal [facility] Comment on above: Result Comment: This liquid based ThinPrep(R) pap test was screened with the use of an image guided system. Performed at: [facility] Performed By: #### [id number] #### [facility] [address] [place] [address] Dr. Ramin Ambrose Note: Comment Normal [facility] Comment on above: Result Comment: The Pap smear is a screening test designed to aid in the detection of premalignant and malignant conditions of the uterine cervix. It is not a diagnostic procedure and should not be used as the sole means of detecting cervical cancer. Both false-positive and false-negative reports do occur. . Performed at: [facility] Performed By: #### [id number] #### [facility] [address] [place] [address] Dr. Ramin Ambrose Performed by: Comment Normal [facility] Comment on above: Result Comment: Og Velazco, Flat Sorting Machine Clerk ([employer]) Performed at: [facility] Performed By: #### [id number] #### [facility] [address] [place] [address] Dr. Ramin Ambrose Specimen adequacy: Comment Normal [facility] Comment on above: Result Comment: Sati sfactory for evaluation. Endocervical component may not be distinguished in cases of atrophy. Performed at: [facility] Performed By: #### 4 [id number] #### [facility] [address] ABDOMEN WO/W CONon [...] MAICOL ROMO Date: 2022-03-29 16:19 Normal [facility] CBC AUTO DIFFon 03-03-2022 BASO # 0.1 103/ul Normal 0.0-0.1 [facility] Comment on above: Performed By: #### H FPFCBC #### [facility] [address] [place] [address] Dr. Ramin Ambrose Basophils/100 WBC (Bld) 1.7 % Normal 0.2-2.0 [facility] Comment on above: Performed By: #### H FPFCBC #### [facility] [address] [place] [address] Dr. Ramin Ambrose EO # 0.3 103/ul Normal 0.0-0.7 [facility] Comment on above: Performed By: #### H FPFCBC #### [facility] [address] [place] [address] Dr. Ramin Ambrose Eosinophils/100 WBC (Bld) 7.4 % Critically high 0.9-7.0 [facility] Comment on above: Performed By: #### H FPFCBC #### [facility] [address] [place] [address] Dr. Ramin Ambrose Erythrocyte distribution width (RBC) [Ratio] 12.1 % Normal 11.0-15.0 [facility] Comment on above: Performed By: #### H FPFCBC #### [facility] [address] [place] [address] Dr. Ramin Ambrose Hematocrit (Bld) [Volume fraction] 40.5 % Normal 36.0-48.0 [facility] Comment on above: Performed By: #### H FPFCBC #### [facility] [address] [place] [address] Dr. Ramin Ambrose Hemoglobin (Bld) [Mass/Vol] 13.4 g/dL Normal 12.0-16.0 [facility] Comment on above: Performed By: #### H FPFCBC #### [facility] [address] [place] [address] Dr. Ramin Ambrose IG # 0.00 10e3/ul Normal 0.00-0.03 [facility] Comment on above: Performed By: #### H FPFCBC #### [facility] [address] [place] [address] Dr. Ramin Ambrose IG % 0.0 % Normal 0.0-0.5 [facility] Comment on above: Performed By: #### H FPFCBC #### [facility] [address] [place] [address] Dr. Ramin Ambrose LYMPH # 1.6 103/ul Normal 1.2-3.8 [facility] Comment on above: Performed By: #### H FPFCBC #### [facility] [address] [place] [address] Dr. Ramin Ambrose Lymphocytes/100 WBC (Bld) 38.2 % Normal 20.5-60.0 [facility] Comment on above: Performed By: #### H FPFCBC #### [facility] [address] [place] [address] Dr. Ramin Ambrose MCH (RBC) [Entitic mass] 31.2 pg Normal 26.7-34.0 [facility] Comment on above: Performed By: #### H FPFCBC #### [facility] [address] [place] [address] Dr. Ramin Ambrose MCHC (RBC) [Mass/Vol] 33.1 g/dL Normal 29.9-35.2 [facility] Comment on above: Performed By: #### H FPFCBC #### [facility] [address] [place] [address] Dr. Ramin Ambrose MCV (RBC) [Entitic vol] 94.4 fL Normal 81.0-99.0 [facility] Comment on above: Performed By: #### H FPFCBC #### [facility] [address] [place] [address] Dr. Ramin Ambrose MONO # 0.3 103/ul Normal 0.3-0.8 [facility] Comment on above: Performed By: #### H FPFCBC #### [facility] [address] [place] [address] Dr. Ramin Ambrose Monocytes/100 WBC (Bld) 7.4 % Normal 1.7-12.0 [facility] Comment on above: Performed By: #### H FPFCBC #### [facility] [address] [place] [address] Dr. Ramin Ambrose NEUT # 1.8 103/ul Normal 1.4-6.5 [facility] Comment on above: Performed By: #### H FPFCBC #### [facility] [address] [place] [address] Dr. Ramin Ambrose Neutrophils/100 WBC (Bld) 45.3 % Normal 43.0-75.0 [facility] Comment on above: Performed By: #### H FPFCBC #### [facility] [address] [place] [address] Dr. Ramin Ambrose Platelet mean volume (Bld) [Entitic vol] 9.9 fL Normal 9.5-13.5 [facility] Comment on above: Performed By: #### H FPFCBC #### [facility] [address] [place] [address] Dr. Ramin Ambrose PLT 233 103/ul Normal 150-450 [facility] Comment on above: Performed By: #### H FPFCBC #### [facility] [address] [place] [address] Dr. Ramin Ambrose RBC 4.29 106/ul Normal 4.20-5.40 [facility] Comment on above: Performed By: #### H FPFCBC #### [facility] [address] [place] [address] Dr. Ramin Ambrose WBC 4.1 103/ul Normal 4.0-11.0 [facility] Comment on above: Performed By: #### H FPFCBC #### [facility] [address] [place] [address] Dr. Ramin Ambrose [facility] PROFILEon 022 Albumin [Mass/Vol] 4.2 g/dL Normal 3.4-5.0 [facility] Comment on above: Performed By: #### H FPF #### [facility] [address] [place] [address] Dr. Ramin Ambrose Albumin/Globulin [Mass ratio] 1.2 {ratio} Normal [facility] Comment on above: Performed By: #### H FPF #### [facility] [address] [place] [address] Dr. Ramin Ambrose ALP [Catalytic activity/Vol] 63 U/L Normal 46-116 [facility] Comment on above: Performed By: #### H FPF #### [facility] [address] [place] [address] Dr. Ramin Ambrose ALT [Catalytic activity/Vol] 28 U/L Normal 14-59 [facility] Comment on above: Performed By: #### H FPF #### [facility] [address] [place] [address] Dr. Ramin Ambrose AST [Catalytic activity/Vol] 28 U/L Normal 15-37 [facility] Comment on above: Performed By: #### H FPF #### [facility] [address] [address] [address] Ramin Ambrose Bilirubin [Mass/Vol] 0.6 mg/dL Normal 0.2-1.0 [facility] Comment on above: Performed By: #### H FPF #### [facility] [address] [address] [address] Ramin Ambrose Calcium [Mass/Vol] 9.2 mg/dL Normal 8.5-10.1 [facility] Comment on above: Performed By: #### H FPF #### [facility] [address] [place] [address] Dr. Ramin Ambrose Chloride [Moles/Vol] 105 mmol/L Normal 98-107 [facility] Comment on above: Performed By: #### H FPF #### [facility] [address] [place] [address] Dr. Ramin Ambrose CHOL-HDL RATIO NORM SEE BELOW Normal [facility] Comment on above: Result Comment: 3.3 - 4.4 LOW RISK 4.4 - 7.1 AVERAGE RISK 7.1 - 11.0 MODERATE RISK >11.0 HIGH RISK Performed By: #### H FPF #### [facility] [address] [place] [address] Dr. Ramin Ambrose Cholesterol [Mass/Vol] 172 mg/dL Normal <=200 [facility] Comment on above: Performed By: #### H FPF #### [facility] [address] [place] [address] Dr. Ramin Ambrose Cholesterol in HDL [Mass/Vol] 79 mg/dL Critically high 40-60 [facility] Comment on above: Performed By: #### H FPF #### [facility] [address] [place] [address] Dr. Ramin Ambrose Cholesterol in LDL [Mass/Vol] 85.8 mg/dL Normal [facility] Comment on above: Performed By: #### H FPF #### [facility] [address] [place] [address] Dr. Ramin Ambrose Cholesterol.total/Ch olesterol in HDL [Mass ratio] 2.2 {ratio} Normal [facility] Comment on above: Performed By: #### H FPF #### [facility] [address] [address] [address] Ramin Ambrose CO2 [Moles/Vol] 28.6 mmol/L Normal 21.0-32.0 [facility] Comment on above: Performed By: #### H FPF #### [facility] [address] [address] [address] Ramin Ambrose Creatinine [Mass/Vol] 1.12 mg/dL Critically high 0.55-1.02 [facility] Comment on above: Performed By: #### H FPF #### [facility] [address] [place] [address] Dr. Ramin Ambrose Globulin (S) [Mass/Vol] 3.5 g/dL Normal [facility] Comment on above: Performed By: #### H FPF #### [facility] [address] [address] [address] Ramin Ambrose Glucose [Mass/Vol] 78 mg/dL Normal 74-106 [facility] Comment on above: Performed By: #### H FPF #### [facility] [address] [place] [address] Dr. Ramin Ambrose HDL NORMAL > or = 60 mg/dl - LO W CARDIOVASCULAR RISK <40 mg/dl - HIGH CARDIOVASCULAR RISK Normal [facility] Comment on above: Performed By: #### H FPF #### [facility] [address] [place] [address] Dr. Ramin Ambrose LDL CALC NORMAL SEE BELOW Normal [facility] Comment on above: Result Comment: <100 mg/dl OPTIMAL 100 - 129 mg/dl NEAR OR ABOVE OPTIMAL 130 - 159 mg/dl BORDERLINE HIGH 160 - 189 mg/dl HIGH >190 mg/dl VERY HIGH Performed By: #### H FPF #### [facility] [address] [place] [address] Dr. Ramin Ambrose Potassium [Moles/Vol] 3.8 mmol/L Normal 3.5-5.1 [facility] Comment on above: Performed By: #### H FPF #### [facility] [address] [address] [address] Ramin Ambrose Protein [Mass/Vol] 7.7 g/dL Normal 6.4-8.2 [facility] Comment on above: Performed By: #### H FPF #### [facility] [address] [address] [address] Ramin Ambrose Sodium [Moles/Vol] 142 mmol/L Normal 136-145 [facility] Comment on above: Performed By: #### H FPF #### [facility] [address] [address] [address] Ramin Ambrose Triglyceride [Mass/Vol] 36 mg/dL Normal <=150 [facility] Comment on above: Performed By: #### H FPF #### [facility] [address] [address] [address] Ramin Ambrose TSH 1.448 uIU/mL Normal 0.358-3.740 [facility] Comment on above: Performed By: #### H FPF #### [facility] [address] [address] [address] Ramin Ambrose Urea nitrogen [Mass/Vol] 14.0 mg/dL Normal 7.0-18.0 [facility] Comment on above: Performed By: #### H FPF #### [facility] [address] [address] [address] Ramin Ambrose Urea nitrogen/Creatinine [Mass ratio] 12.5 mg/mg Normal [facility] Comment on above: Performed By: #### H FPF #### [facility] [address] [address] [address] Ramin Ambrose VLDL CALC 7.2 mg/dL Normal [facility] Comment on above: Performed By: #### H FPF #### [facility] [id number] Ramin Ambrose Vital Signs Date Time Vital Sign Value Performing Clinician Facility 03-25-2024 15:13-0400 Body height 160.02 cm [facility] 03-25-2024 15:13-0400 Body mass index (BMI) [Ratio] 25.5 kg/m2 [facility] 03-25-2024 15:13-0400 Body weight 65.48 kg [facility] 03-25-2024 15:13-0400 Diastolic blood pressure 81 mm[Hg] [facility] 03-25-2024 15:13-0400 Heart rate 59 /min [facility] 03-25-2024 15:13-0400 Respiratory rate 12 /min [facility] 03-25-2024 15:13-0400 Systolic blood pressure 127 mm[Hg] [facility] 06-02-2023 12:44-0500 Diastolic blood pressure 72 mm[Hg] DO Justus Ball Work Phone: [facility] 06-02-2023 12:44-0500 Heart rate 63 /min DO Justus Ball Work Phone: [facility] 06-02-2023 12:44-0500 Respiratory rate 18 /min DO Justus Ball Work Phone: [facility] 06-02-2023 12:44-0500 SaO2% (BldA) [Mass fraction] 98 % DO Justus Ball Work Phone: [facility] 06-02-2023 12:44-0500 Systolic blood pressure 119 mm[Hg] DO Justus Ball Work Phone: [facility] 06-02-2023 10:40-0500 Body height 160.02 cm DO Justus Ball Work Phone: [facility] 06-02-2023 10:40-0500 Body weight 61.23 kg DO Justus Ball Work Phone: [facility] 03-16-2023 11:30-0400 Body height 165.1 cm Justus Ball Other [facility] [employer] [employer] Other 03-16-2023 11:30-0400 Body mass index (BMI) [Ratio] 24.69 kg/m2 Justus Ball Other [facility] Other 03-16-2023 11:30-0400 Body weight 67.31 kg Justus Hilario Other [employer] Other 03-16-2023 11:30-0400 Diastolic blood pressure 74 mm[Hg] Justus INMAN Other [employer] Other 03-16-2023 11:30-0400 Respiratory rate 12 /min Justus INMAN Other [employer] Other 03-16-2023 11:30-0400 Systolic blood pressure 120 mm[Hg] Justus INMAN Other [facility] Other Encounters Encounter Date Encounter Type Care Provider Facility Start: 08-20-2024 End: 08-20-2024 Bamboo flowsheet Wilian Jessa DO Work Phone: [facility] Start: 08-20-2024 End: 08-20-2024 Bamboo flowsheet Wilian Jessa DO Work Phone: [facility] Start: 03-25-2024 End: 03-25-2024 ambulatory [facility] Work Phone: Start: 03-25-2024 End: 03-25-2024 Encounter for general adult medical examination without abnormal findings [facility] Start: 03-25-2024 End: 03-25-2024 Patient encounter procedure [facility] Work Phone: Start: 03-21-2024 Patient encounter status [facility] Start: 03-01-2024 Non-patient / Non-visit [facility] [employer] Work Phone: Start: 08-15-2023 Clinisync Result Encounter Wilian Jessa DO Work Phone: [facility] Unsolicited Start: 08-15-2023 Clinisync Result Encounter Wilian Jessa DO Work Phone: [facility] Unsolicited Start: 08-15-2023 End: 08-15-2023 ambulatory WILIAN GERMAIN Not Available Start: 06-22-2023 End: 06-22-2023 ambulatory Luis Alberto Davalos Other [employer] Other Start: 06-22-2023 Telephone encounter Luis Alberto Rodriguez [employer] Start: 06-06-2023 End: 06-06-2023 ambulatory Justus Hilario Other [employer] Other Start: 06-06-2023 Telephone encounter Justus Rodriguez [facility] Start: 06-02-2023 End: 06-02-2023 ambulatory Justus Hilario Facility:[facility] Start: 06-02-2023 End: 06-02-2023 Admission to same day surgery center DO Justus Hilario Work Phone: [facility] Work Phone: Start: 06-02-2023 End: 06-02-2023 ambulatory DO Justus Hilario Work Phone: [facility] Work Phone: Start: 03-31-2023 End: 03-31-2023 ambulatory Imad Asaad Other [employer] Other Start: 03-31-2023 Telephone encounter Imad Asaad [facility] [employer] Start: 03-16-2023 End: 03-16-2023 ambulatory Justus Hilario Other [employer] Other Start: 03-16-2023 Encounter for genera l adult medical examination without abnormal findings Justus Hilario [facility] Start: 03-16-2023 Periodic preventive med est patient 40-64yrs Justus Sulaiman [facility] Start: 09-26-2022 End: 09-27-[address] WILIAN GERMAIN . Facility: Start: 08-09-2022 End: 01-24-[address] WILIAN GERMAIN . Facility:[facility] Start: 03-29-2022 End: 03-30-[address] JUSTUS HILARIO Facility:[facility] Start: 03-03-2022 End: 03-04-[address] JUSTUS HILARIO Facility:[facility] Procedures Date Procedure Procedure Detail Performing Clinician Start: 10-13-2023 Mammography Wilian Wallyzi o DO Work Phone: Start: 08-15-2023 IGP,APTIMA HPV,AGE GDLN Wilian Jessa DO Work Phone: Start: 08-15-2023 Microscopic observat ion [Identifier] in Cervix by Cyto stain Wilian Lozio DO Work Phone: Start: 06-02-2023 Screening colonoscopy D O Justus Hilario Work Phone: Start: 09-26-2022 Mammography Wiliangaviota Reyez o DO Work Phone: Screening for malign ant neoplasm of colon Justus Hilario Other Plan of Treatment Date Care Activity Detail Author Start: 10-12-2024 Screening for malign ant neoplasm of breast Mammogram [facility] Start: 08-20-2024 End: 08-20-2024 Patient encounter procedure 08/20/2024 8:30 AM EST Office Visit [facility] [address] [place] [id number] Wilian Germain, DO [address] [place] [address] [facility] Start: 08-15-2024 Screening for malign ant neoplasm of cervix [facility] Start: 03-17-2024 Influenza vaccination Influenza Vacc ine (#1) [facility] Start: 09-27-2023 Screening for malign ant neoplasm of breast Mammogram [facility] Start: 06-02-2023 [facility] Start: 03-17-2023 Influenza vaccination Influenza Vacc ine (#1) [facility] Start: 1992 Screening for malign ant neoplasm of cervix [facility] Start: 1983 Screening for malign ant neoplasm of cervix Pap Smear [facility] Start: 1960 Screening for malign ant neoplasm of colon [facility] Patient Education Hemorrhoids (DC) [facility] Work Phone: Payers Date Payer Category Payer Self-pay 2023 Private Health Insurance [employer] [id number] 2023 Unknown [employer] [id number] 2023-Present [address] [place] [address] [id number] 1962 Unknown [id number] 1962 Unknown [id number] 1962 Unknown [id number] 1962 Unknown [id number] 1959 Self-pay [id number] 1959 Unknown [id number] Unknown [id number] Unknown [id number] Social History Date Type Detail Facility Start: 07-26-2023 Sex Assigned At [facility] Other Start: 1960 Sex Assigned At Female [facility] Start: 07-26-2023 Tobacco smoking status NHIS Never smoked tobacco [facility] Start: 08-15-2023 Alcohol intake Current drinke r of alcohol (finding) [facility] Start: 07-26-2023 History of Social function [facility] Start: 07-26-2023 Alcohol Comment caffeine 1-2 c ups per day coffee [facility] Start: 08-08-2023 Gender identity Identifies as female gender (finding) [facility] Goals Date Patient Goal Desired Activity /State Procedure note 06-02-2023 Note Date & Type Note Facility 06-02-2023 Procedure note [facility] Evaluation note 03-16-2023 Note Date & [...] she denies abdominal pain, melena or hematochezia [employer] Other Evaluation note Note Date & Type Note Facility Evaluation note No Information [employer] [facility] Other Evaluation note Note Date & Type Note Facility Evaluation note No assessment information availa ble [facility] Work Phone: Evaluation note Note Date & Type Note Facility Evaluation note Diagnosis Onset Date Hypothyroidism acute Screening mammogram for breast cancer acute Wellness examination acute [facility] Work Phone: History and physical note Note Date & Type Note Facility History and physical note Note Date/Time June 02, 2023 11:47am [facility] [address] [place] [address] Gastroenterology H&P Signed Patient: Kyra Arroyo MR#: [id number] 0 : 1960 Acct:[id number] Age/Sex: 62 / F Adm Date: 3 Loc: Room: Type: [facility] Attending Dr: Silvestre Escalona MD Copies to: Justus Hilario,DO Silvestre Escaloan MD~ Date of Service: 06/02/2023 HISTORY & [...] Escalona M.D. Documented By: Silvestre Escalona MD 06/02/231146 Signed By: <Electronically signed by Silvestre Escalona MD> 06/02/23 114 [facility] Work Phone: History general Narrative - Reported Note Date & Type Note Facility History general Narrative - Reported Type Medical History Pyuria Medical History Postablative hypothyroidism Medical History Renal cyst Medical History Left renal mass Surgical History Delivery Surgical History Essure Procedure Surgical History Excision BCC Surgical History Tubal Ligation Surgical History Colonoscopy 2012 Surgical History BTL 2007 Hospitalization History SEE SURGICAL HX [employer] Other History general Narrative - Reported Note [...] History Colonoscopy 05/2023 Hospitalization History SEE SURGICAL HX [employer] Other Hospital Discharge instructions Note Date & [...] years. -Follow up with PCP. -Office number [phone]. [facility] Work Phone: Reason for referral (narrative) Note Date & Type Note Facility Reason for referral (narrative) Diagnosis 1 Screening for colon cancer (Z12.11) Referral Organization [facility] Alejandra ramirez Referring Provider First Name Justus Referring Provider Last Name Sulaiman Referring Provider Specialty Internal Medicine Referred Organization [facility] Referred Provider Silvestre Escalona [address] Address [address] [place], [place],[address] Referred Provider Specialty Gastroenterology Referral Priority Routine General Notes Mrs. Arroyo is an asym ptomatic, low risk patient who is due for a screening colonoscopy. Her last colonoscopy was in 2012. She denies change in appetite, weight or bowel habits. She denies N/V, heartburn or dysphagia. She denies abdominal pain, melena or hematochezia Merle Lowery 03/16/2023 04:26:24 PM >recieved today, sent P2P [employer] Other Summary Purpose Family History Relationship Condition [...] content) DATE CREATED AUTHOR 09/27/2022 [facility] DATE CREATED AUTHOR AUTHOR'S ORGANIZ ATION 06/14/2023 [facility] DATE CREATED AUTHOR AUTHOR'S ORGANIZ ATION 08/16/2023 [facility] EPIC REASON FOR VISIT (unrecogniz ed section and content) [employer] PPWNo Informati onGASTRO OP REPORT Care Teams (unrecognized sec tion and content) Team Status: Active Member Role Status Dates Justus Hilario , DO Primary Care Provider Active Team Status: Active Member Role Status Dates Justus Hilario , DO Primary Care Provide r, Attending Provider Active Start: March 01, 2024 Team Status: Inactive Member Role Status Dates Justus Hilario , DO Primary Care Provide r, Attending Provider Active Start: March 25, 2024 End: March 25, 2024 Team Status: Inactive Member Role Status Dates Silvestre Escalona MD Attending Provider Active Justus Hilario , DO Primary Care Provider Active Plodder Operator Relationship Specialty Start Date End Date Justus Hilario MD [address] [place] [id number] PCP - General 08/08/23 Plodder Operator Relationship Specialty Start Date End Date Justus Hilario MD [address] [place] [id number] PCP - General 08/08/23 Goals (unrecognized section and content) Goals may [...] BE BASED ON THE PRIMARY CLINICAL RECORDS. [facility] [employer] [facility]. provides no warranty or guarantee of the accuracy or completeness of information in this document.
[2024-08-26 12:07] LABS: Age Gdln ACOG Testing Note (.); HPV Aptima Negative (Negative); IGP, Aptima HPV, rfx 16/18,45 Note (.)
== END 2024-08-20 20:07 | disposition home or self-care (01) ==
LOC: LAB 20:06
PROVIDERS: PCP Internal Medicine; Visit Provider Obstetrics & Gynecology
DX: Z01.419 Encounter for gynecological examination (general) (routine) without abnormal findings (principal)
CPT/HCPCS: 87624; 88175

== ENCOUNTER 2024-10-08 18:13 | Emergency (ER) | payer OTHER, SELFPAY ==
[2024-10-08] VITALS (24 sets, daily range): BP systolic 112–171; BP diastolic 63–94; PULSE 54–80; TEMP 36.4–36.9; O2SAT 93–100; BMI 24.4
--- OUTSIDE RECORDS SUMMARY | 2024-10-08 18:21 | XMS_ITS | CCD ---
Author Organization [facility] Care Team Providers Care Reimbursement Auditor Name Role Phone JESSA ., DR CEDENO Admitting Unavailable JESSA ., DR CEDENO Attending Unavailable BALL, DR YO Primary Care Unavailable JESSA ., DR CEDENO Consulting Unavailable ZIEBER, DR MAICOL Mac Consulting Unavailable SULAIMAN, DR YO Admitting Unavailable BALL, DR YO Attending Unavailable BALL, DR YO Primary Care Unavailable SULAIMAN, DR YO Consulting Unavailable ZIEBER, DR MAICOL Mac Consulting Unavailable SULAIMAN, DR YO Admitting Unavailable SULAIMAN, DR YO Attending Unavailable BALL, DR YO Primary Care Unavailable BALL, DR YO Consulting Unavailable JESSA ., DR CEDENO Admitting Unavailable JESSA ., DR CEDENO Attending Unavailable BALL, DR YO Primary Care Unavailable JESSA ., DR CEDENO Consulting Unavailable Justus Hilario Unavailable Silvestre Escalona Unavailable MD Silvestre Escalona Attending Provider DO Justus Hilario Primary Care Provider [phone] Justus Hilario Primary Care Unavailable Silvestre Escalona Attending Unavailable Pola Imeloise Admitting Unavailable Luis Alberto Davalos Unavailable Justus Hilario MD Primary Care Provider WILIAN GERMAIN Attending Unavailable Medications Current Medications Medication Drug Class(es) Dates Sig (Normalized) Sig (Original) levonorgestrel 0.660783 mg/hr intrauterine system (4 sources) Progestin, Progestin-containi ng Intrauterine Device Start: 03-13-2022 Mirena (52 MG) 20 MCG/DAY as directed Intrauterine for 0 days Feb, Active levothyroxine sodium 0.1 mg oral tablet (13 sources) l-Thyroxine Start: 02-06-2024 End: 03-21-2024 Levothyroxine [...] for 10 days Active polyethylene glycol 3350 641050 mg / potassium chloride 2970 mg / sodium bicarbonate 6740 mg / sodium chloride 5860 mg / sodium sulfate 28119 mg powder for oral solution (3 sources) [...] conditions (not mental disorders or infectious disease) (14 sources) Encounter for screening mammogram for malignant [...] GDLNon AGE GDLN ACOG TESTING Note . [facility] Comment on above: TESTS RESULT FLAG UN ITS REF RANGE LAB Clinician Provided Cytology Information Source.............Cervix;Endocervix No. of containers..01 ThinPrep Vial Age Algo ACOG Anju... 30-65 01 FLAG LEGEND: L-Low Normal,H-High Normal,LL-Alert Low,HH-Alert High <-Panic Low,>-Panic High,A-Abnormal,AA-Critical Abnormal Performed at: 01 =G [address] [address] Jen Brasher MD, HPV APTIMA Negative Negative [facility] Comment on above: This nucleic acid am plification test detects fourteen high- risk HPV types (16,18,31,33,35,39,45,51,52,56,58,59,66,68) without differentiation. Performed at: =G - [facility] [address] [facility], [place] [id number] Associate Program Manager: Jen Brasher MD, Phone: [phone] Performed at: WB - [facility] [address] [place], [place] [id number] Associate Program Manager: Jen Brasher MD, Phone: [phone] IGP, APTIMA HPV, RFX 16/18,45 Note . [facility] Comment on above: TESTS RESULT FLAG UN ITS REF RANGE LAB DIAGNOSIS: 02 NEGATIVE FOR INTRAEPITHELIAL LESION OR MALIGNANCY. REACTIVE CELLULAR CHANGES AND/OR REPAIR ARE PRESENT. CELLULAR CHANGES ASSOCIATED WITH ATROPHY ARE PRESENT. Specimen adequacy: 02 Satisfactory for evaluation. Endocervical component may not be distinguished in cases of atrophy. Performed by: 02 Meme Blue, Vtc Technician (ASCP) Electronically si... 02 Aruna Smith MD, Pathologist . 02 Note: Note 02 The Pap smear is a screening test designed to aid in the detection of premalignant and malignant conditions of the uterine cervix. It is not a diagnostic procedure and should not be used as the sole means of detecting cervical cancer. Both false-positive and false-negative reports do occur. Test Methodology: Note 02 This liquid based ThinPrep(R) pap test was screened with the use of an image guided system. HPV Genotype Reflex Note 02 Criteria not met, HPV Genotype not performed. FLAG LEGEND: L-Low Normal,H-High Normal,LL-Alert Low,HH-Alert High <-Panic Low,>-Panic High,A-Abnormal,AA-Critical Abnormal Performed at: [address] [place] [address] Jen Brasher MD, BRUSH-SPATULA CERVIX ENDOCERVIX [facility] Basophils Auto (Bld) [#/Vol] on 03-01-2024 Basophils (Bld) [#/Vol] 0.1 10 3/uL 0.0-0.1 [facility] Basophils/100 WBC Auto (Bld) on 03-01-2024 Basophils/100 WBC (Bld) 1.4 % 0.2-2.0 [facility] Cholesterol in LDL Calc [Mas s/Vol]on 03-01-2024 Cholesterol in LDL [Mass/Vol] 68.0 mg/dL [facility] Comment on above: <100 mg/dl [id number] 0-129 mg/dl NEAR OR ABOVE [id number] mg/dl BORDERLINE [id number] mg/dl HIGH>190 mg/dl VERY HIGH Cholesterol in VLDL Calc [Ma ss/Vol]on 03-01-2024 Cholesterol in VLDL [Mass/Vol] 6.8 mg/dL [facility] Eosinophils/100 WBC Auto (Bl d)on 03-01-2024 Eosinophils/100 WBC (Bld) 8.2 % High 0.9-7.0 [facility] Erythrocyte distribution wid th Auto (RBC) [Ratio]on 03-01-2024 Erythrocyte distribution width (RBC) [Ratio] 11.4 % 11.0-15.0 [facility] Estimated glomerular filtrat ion rate (GFR) non- Americanon 03-01-2024 GFR/1.73 sq M.predicted among non-blacks MDRD (S/P/Bld) [Vol rate/Area] mL/min/{1.73_m2} >=60 [facility] Globulin Calc (S) [Mass/Vol] on 03-01-2024 Globulin (S) [Mass/Vol] 3.3 g/dL [facility] Hematocrit Auto (Bld) [Volum e fraction]on 03-01-2024 Hematocrit (Bld) [Volume fraction] 41.9 % 36.0-48.0 [facility] Hemoglobin [Mass/volume] in Bloodon 03-01-2024 Hemoglobin (Bld) [Mass/Vol] 13.9 g/dL 12.0-16.0 [facility] Laboratory - Chemistry and C hemistry - challengeon 03-01-2024 Albumin [Mass/Vol] 3.9 g/dL 3.4-5.0 [facility] ALP [Catalytic activity/Vol] 54 U/L 46-116 [facility] ALT [Catalytic activity/Vol] 32 U/L 14-59 [facility] AST [Catalytic activity/Vol] 27 U/L 15-37 [facility] Bilirubin [Mass/Vol] 0.4 mg/dL 0.2-1.0 [facility] Calcium [Mass/Vol] 9.3 mg/dL 8.5-10.1 [facility] Chloride [Moles/Vol] 107 mmol/L 98-107 [facility] Cholesterol [Mass/Vol] 150 mg/dL <=200 [facility] Cholesterol in HDL [Mass/Vol] 76 mg/dL High 40-60 [facility] Comment on above: > or =60 mg/dl - LOW CARDIOVASCULAR RISK<40 mg/dl - HIGH CARDIOVASCULAR RISK CO2 [Moles/Vol] 29.6 mmol/L 21.0-32.0 [facility] Creatinine [Mass/Vol] 0.86 mg/dL 0.55-1.02 [facility] GFR/1.73 sq M.predicted MDRD (S/P/Bld) [Vol rate/Area] mL/min/{1.73_m2} >=60 [facility] Glucose [Mass/Vol] 79 mg/dL 74-106 [facility] Potassium [Moles/Vol] 4.8 mmol/L 3.5-5.1 [facility] Protein [Mass/Vol] 7.2 g/dL 6.4-8.2 [facility] Sodium [Moles/Vol] 143 mmol/L 136-145 [facility] Triglyceride [Mass/Vol] 34 mg/dL <=150 [facility] TSH Qn 0.064 m[IU]/L Low 0.358-3.740 [facility] Urea nitrogen [Mass/Vol] 19.0 mg/dL High 7.0-18.0 [facility] Urea nitrogen/Creatinine [Mass ratio] 22.1 mg/mg [facility] Laboratory - Hematology and Cell countson 03-01-2024 Immature granulocytes/100 WBC (Bld) 0.0 % 0.0-0.5 [facility] Leukocytes [#/volume] correc mercy for nucleated erythrocytes in Blood by Automated counon 03-01-2024 WBC corrected for nucl RBC Auto (Bld) [#/Vol] 4.3 10 3/uL 4.0-11.0 [facility] Lymphocytes Auto (Bld) [#/Vo l]on 03-01-2024 Lymphocytes (Bld) [#/Vol] 1.8 10 3/uL 1.2-3.8 [facility] Lymphocytes/100 WBC Auto (Bl d)on 03-01-2024 Lymphocytes/100 WBC (Bld) 41.6 % 20.5-60.0 [facility] MCH Auto (RBC) [Entitic mass ]on 03-01-2024 MCH (RBC) [Entitic mass] 31.8 pg 26.7-34.0 [facility] MCHC Auto (RBC) [Mass/Vol]on 03-01-2024 MCHC (RBC) [Mass/Vol] 33.2 g/dL 29.9-35.2 [facility] MCV Auto (RBC) [Entitic vol] on 03-01-2024 MCV (RBC) [Entitic vol] 95.9 fL 81.0-99.0 [facility] Monocytes Auto (Bld) [#/Vol] on 03-01-2024 Monocytes (Bld) [#/Vol] 0.3 10 3/uL 0.3-0.8 [facility] Monocytes/100 WBC Auto (Bld) on 03-01-2024 Monocytes/100 WBC (Bld) 7.0 % 1.7-12.0 [facility] Neutrophils Auto (Bld) [#/Vo l]on 03-01-2024 Neutrophils (Bld) [#/Vol] 1.8 10 3/uL 1.4-6.5 [facility] Neutrophils/100 WBC Auto (Bl d)on 03-01-2024 Neutrophils/100 WBC (Bld) 41.8 % Low 43.0-75.0 [facility] No Panel Informationon 03-01 Eosinophils # (Auto) 0.4 10 3/uL 0.0-0.7 [facility] Immature Granulocyte # (Auto) 0.00 10 3/uL 0.00-0.03 [facility] Platelet mean volume Auto (B ld) [Entitic vol]on 03-01-2024 Platelet mean volume (Bld) [Entitic vol] 10.6 fL 9.5-13.5 [facility] Platelets Auto (Bld) [#/Vol] on 03-01-2024 Platelets (Bld) [#/Vol] 209 10 3/uL 150-450 [facility] RBC Auto (Bld) [#/Vol]on RBC (Bld) [#/Vol] 4.37 10 6/uL 4.20-5.40 [facility] Serum or plasma albumin/glob ulin mass ratioon 03-01-2024 Albumin/Globulin [Mass ratio] 1.2 {ratio} [facility] Serum or plasma anion gap de terminationon 03-01-2024 Anion gap [Moles/Vol] 11.2 mmol/L [facility] Serum or plasma total choles terol/high density lipoprotein (HDL) cholesterol mass ag 03-01-2024 Cholesterol.total/Ch olesterol in HDL [Mass ratio] 2.0 {ratio} [facility] Comment on above: 3.3 - 4.4 LOW RISK4. 4 - 7.1 AVERAGE RISK7.1 - 11.0 MODERATE RISK>11.0 HIGH RISK IGP,APTIMA HPV,AGE GDLNon AGE GDLN ACOG TESTING Note . [facility] Comment on above: TESTS RESULT FLAG UN ITS REF RANGE LAB Clinician Provided Cytology Information Source.............Cervix No. of containers..01 ThinPrep Vial Age Lalito MARTINEZ Anju... 30 FLAG LEGEND: L-Low Normal,H-High Normal,LL-Alert Low,HH-Alert High <-Panic Low,>-Panic High,A-Abnormal,AA-Critical Abnormal Performed at: 01 =G [address] [address] Jen Brasher MD, HPV APTIMA Negative Negative [facility] Comment on above: This nucleic acid am plification test detects fourteen high- risk HPV types (16,18,31,33,35,39,45,51,52,56,58,59,66,68) without differentiation. Performed at: =[address] [id number] Associate Program Manager: Jen Brasher MD, Phone: [phone] Performed at: [facility] [id number] [place] [id number] Associate Program Manager: Jose Lizama MD, Phone: [phone] IGP, APTIMA HPV, RFX 16/18,45 Note . [facility] Comment on above: TESTS RESULT FLAG UN ITS REF RANGE LAB DIAGNOSIS: 02 NEGATIVE FOR INTRAEPITHELIAL LESION OR MALIGNANCY. CELLULAR CHANGES ASSOCIATED WITH ATROPHY ARE PRESENT. Specimen adequacy: 02 Satisfactory for evaluation. Endocervical component may not be distinguished in cases of atrophy. Performed by: 02 Kyra Rashid, Vtc Technician ([facility]) . 02 Note: Note 03 [...] High,A-Abnormal,AA-Critical Abnormal Performed at: 02 [facility] [address] [place] [address] Jose Lizama MD, 03 WB [facility] [address] [address] Jen Brasher MD, BRUSH-SPATULA CERVIX [facility] Cytology Cervical or vaginal smear or scraping studyon 08-15-2023 [facility] MG MAMM SCREEN 3D ALLISON CADon 09-26-2022 MG MAMM SCREEN 3D ALLISON CAD Patient: KYRA ARROYO Exam Date: 09/26/2022 : 1960 Gender:F Ordering : DR WILIAN GERMAIN . Admission #: [id number] Family : Order #: [id number] CLICK HERE TO VIEW EXAM RADIOLOGY REPORT [...] lung cancer at age 42. LOCATION: [facility] BREAST COMPOSITION: Scattered areas fibroglandular density. FINDINGS: [...] Maicol Romo M.D. on 09/26/2022 at 10:23 [facility] PAP ACOG PANEL 2: 30 to 65on 08-16-2022 . . Normal [facility] Comment on above: Result Comment: Perf ormed at: [facility] Performed By: #### [id number] #### [facility] [address] [address] [address] Ramin Ambrose Age Gdln ACOG Testing 30-65 Normal [facility] Comment on above: Performed By: #### [id number] #### [facility] [address] [address] [address] Ramin Ambrose DIAGNOSIS: Comment Normal [facility] Comment on above: Result Comment: NEGA TIVE FOR INTRAEPITHELIAL LESION OR MALIGNANCY. CELLULAR CHANGES ASSOCIATED WITH ATROPHY ARE PRESENT. Performed at: [facility] Performed By: #### [id number] #### [facility] [address] [place] [address] Dr. Ramin Ambrose HPV Aptima Negative Normal Negative [facility] Comment on above: Result Comment: This nucleic acid amplification test detects fourteen high-risk HPV types (16,18,31,33,35,39,45,51,52,56,58,59,66,68) without differentiation. Performed at: =G Performed By: #### [id number] #### [facility] [address] [place] [address] Dr. Ramin Ambrose HPV Genotype Reflex Comment Normal [facility] Comment on above: Result Comment: Crit eria not met, HPV Genotype not performed. Performed at: [facility] Performed By: #### [id number] #### [facility] [address] [place] [address] Dr. Ramin Ambrose Methodology: Comment Normal [facility] Comment on above: Result Comment: This liquid based ThinPrep(R) pap test was screened with the use of an image guided system. Performed at: WB Performed By: #### [id number] #### [facility] [address] [place] [address] Dr. Ramin Ambrose Note: Comment Normal [facility] Comment on above: Result Comment: The Pap smear is a screening test designed to aid in the detection of premalignant and malignant conditions of the uterine cervix. It is not a diagnostic procedure and should not be used as the sole means of detecting cervical cancer. Both false-positive and false-negative reports do occur. . Performed at: WB Performed By: #### [id number] #### [facility] [address] [place] [address] Dr. Ramin Ambrose Performed by: Comment Normal [facility] Comment on above: Result Comment: Og Velazco, Vtc Technician (ASCP) Performed at: [facility] Performed By: #### [id number] #### [facility] [address] [place] [address] Dr. Ramin Ambrose Specimen adequacy: Comment Normal [facility] Comment on above: Result Comment: Sati sfactory for evaluation. Endocervical component may not be distinguished in cases of atrophy. Performed at: [facility] Performed By: #### [id number] #### [facility] [address] [address] ABDOMEN WO/W CONon [...] MAICOL ROMO Date: 2022-03-29 16:19 Normal [facility] CBC AUTO DIFFon 03-03-2022 BASO # 0.1 103/ul Normal 0.0-0.1 [facility] Comment on above: Performed By: #### H FPFCBC #### [facility] [address] [place] [address] Dr. Ramin Ambrose Basophils/100 WBC (Bld) 1.7 % Normal 0.2-2.0 [facility] Comment on above: Performed By: #### H FPFCBC #### [facility] [address] [address] [address] Ramin Ambrose EO # 0.3 103/ul Normal 0.0-0.7 [facility] Comment on above: Performed By: #### H FPFCBC #### [facility] [address] [place] [address] Dr. Ramin Ambrose Eosinophils/100 WBC (Bld) 7.4 % Critically high 0.9-7.0 [facility] Comment on above: Performed By: #### H FPFCBC #### [facility] [address] [place] [address] Dr. Ramin Ambrose Erythrocyte distribution width (RBC) [Ratio] 12.1 % Normal 11.0-15.0 [facility] Comment on above: Performed By: #### H FPFCBC #### [facility] [address] [place] [address] Dr. Ramin Ambrose Hematocrit (Bld) [Volume fraction] 40.5 % Normal 36.0-48.0 [facility] Comment on above: Performed By: #### H FPFCBC #### [facility] [address] [place] [address] Dr. Ramin Ambrose Hemoglobin (Bld) [Mass/Vol] 13.4 g/dL Normal 12.0-16.0 [facility] Comment on above: Performed By: #### H FPFCBC #### [facility] [address] [place] [address] Dr. Ramin Ambrose IG # 0.00 10e3/ul Normal 0.00-0.03 [facility] Comment on above: Performed By: #### H FPFCBC #### [facility] [address] [place] [address] Dr. Ramin Ambrose IG % 0.0 % Normal 0.0-0.5 [facility] Comment on above: Performed By: #### H FPFCBC #### [facility] [address] [place] [address] Dr. Ramin Ambrose LYMPH # 1.6 103/ul Normal 1.2-3.8 [facility] Comment on above: Performed By: #### H FPFCBC #### [facility] [address] [place] [address] Dr. Ramin Ambrose Lymphocytes/100 WBC (Bld) 38.2 % Normal 20.5-60.0 [facility] Comment on above: Performed By: #### H FPFCBC #### [facility] [address] [place] [address] Dr. Ramin Ambrose MCH (RBC) [Entitic mass] 31.2 pg Normal 26.7-34.0 [facility] Comment on above: Performed By: #### H FPFCBC #### [facility] [address] [place] [address] Dr. Ramin Ambrose MCHC (RBC) [Mass/Vol] 33.1 g/dL Normal 29.9-35.2 [facility] Comment on above: Performed By: #### H FPFCBC #### [facility] [address] [place] [address] Dr. Ramin Ambrose MCV (RBC) [Entitic vol] 94.4 fL Normal 81.0-99.0 [facility] Comment on above: Performed By: #### H FPFCBC #### [facility] [address] [place] [address] Dr. Ramin Ambrose MONO # 0.3 103/ul Normal 0.3-0.8 [facility] Comment on above: Performed By: #### H FPFCBC #### [facility] [address] [place] [address] Dr. Ramin Ambrose Monocytes/100 WBC (Bld) 7.4 % Normal 1.7-12.0 [facility] Comment on above: Performed By: #### H FPFCBC #### [facility] [address] [place] [address] Dr. Ramin Ambrose NEUT # 1.8 103/ul Normal 1.4-6.5 [facility] Comment on above: Performed By: #### H FPFCBC #### [facility] [address] [place] [address] Dr. Ramin Ambrose Neutrophils/100 WBC (Bld) 45.3 % Normal 43.0-75.0 [facility] Comment on above: Performed By: #### H FPFCBC #### [facility] [address] [place] [address] Dr. Ramin Ambrose Platelet mean volume (Bld) [Entitic vol] 9.9 fL Normal 9.5-13.5 [facility] Comment on above: Performed By: #### H FPFCBC #### [facility] [address] [place] [address] Dr. Ramin Ambrose PLT 233 103/ul Normal 150-450 [facility] Comment on above: Performed By: #### H FPFCBC #### [facility] [address] [place] [address] Dr. Ramin Ambrose RBC 4.29 106/ul Normal 4.20-5.40 [facility] Comment on above: Performed By: #### H FPFCBC #### [facility] [address] [place] [address] Dr. Ramin Ambrose WBC 4.1 103/ul Normal 4.0-11.0 [facility] Comment on above: Performed By: #### H FPFCBC #### [facility] [address] [place] [address] Dr. Ramin Ambrose [facility] PROFILEon 022 Albumin [Mass/Vol] 4.2 g/dL Normal 3.4-5.0 [facility] Comment on above: Performed By: #### H FPF #### [facility] [address] [place] [address] Dr. Ramin Ambrose Albumin/Globulin [Mass ratio] 1.2 {ratio} Normal [facility] Comment on above: Performed By: #### H FPF #### [facility] [address] [place] [address] Dr. Ramin Ambrose ALP [Catalytic activity/Vol] 63 U/L Normal 46-116 [facility] Comment on above: Performed By: #### H FPF #### [facility] [address] [place] [address] Dr. Ramin Ambrose ALT [Catalytic activity/Vol] 28 U/L Normal 14-59 [facility] Comment on above: Performed By: #### H FPF #### [facility] [address] [place] [address] Dr. Ramin Ambrose AST [Catalytic activity/Vol] 28 U/L Normal 15-37 [facility] Comment on above: Performed By: #### H FPF #### [facility] [address] [address] [address] Ramin Ambrose Bilirubin [Mass/Vol] 0.6 mg/dL Normal 0.2-1.0 [facility] Comment on above: Performed By: #### H FPF #### [facility] [address] [place] [address] Dr. Ramin Ambrose Calcium [Mass/Vol] 9.2 mg/dL Normal 8.5-10.1 [facility] Comment on above: Performed By: #### H FPF #### [facility] [address] [place] [address] Dr. Ramin Ambrose Chloride [Moles/Vol] 105 mmol/L Normal 98-107 [facility] Comment on above: Performed By: #### H FPF #### [facility] [address] [place] [address] Dr. Ramin Ambrose CHOL-HDL RATIO NORM SEE BELOW Normal [facility] Comment on above: Result Comment: 3.3 - 4.4 LOW RISK 4.4 - 7.1 AVERAGE RISK 7.1 - 11.0 MODERATE RISK >11.0 HIGH RISK Performed By: #### H FPF #### [facility] [address] [place] [address] Dr. Ramin Ambrose Cholesterol [Mass/Vol] 172 mg/dL Normal <=200 [facility] Comment on above: Performed By: #### H FPF #### [facility] [address] [place] [address] Dr. Ramin Ambrose Cholesterol in HDL [Mass/Vol] 79 mg/dL Critically high 40-60 [facility] Comment on above: Performed By: #### H FPF #### [facility] [address] [place] [address] Dr. Ramin Ambrose Cholesterol in LDL [Mass/Vol] 85.8 mg/dL Normal [facility] Comment on above: Performed By: #### H FPF #### [facility] [address] [place] [address] Dr. Ramin Ambrose Cholesterol.total/Ch olesterol in HDL [Mass ratio] 2.2 {ratio} Normal [facility] Comment on above: Performed By: #### H FPF #### [facility] [address] [address] [address] Ramin Ambrose CO2 [Moles/Vol] 28.6 mmol/L Normal 21.0-32.0 [facility] Comment on above: Performed By: #### H FPF #### [facility] [address] [address] [address] Ramin Ambrose Creatinine [Mass/Vol] 1.12 mg/dL Critically high 0.55-1.02 [facility] Comment on above: Performed By: #### H FPF #### [facility] [address] [place] [address] Dr. Ramin Ambrose Globulin (S) [Mass/Vol] 3.5 g/dL Normal [facility] Comment on above: Performed By: #### H FPF #### [facility] [address] [address] [address] Ramin Ambrose Glucose [Mass/Vol] 78 mg/dL Normal 74-106 [facility] Comment on above: Performed By: #### H FPF #### [facility] [address] [place] [address] Dr. Ramin Ambrose HDL NORMAL > or = 60 mg/dl - LO W CARDIOVASCULAR RISK <40 mg/dl - HIGH CARDIOVASCULAR RISK Normal [facility] Comment on above: Performed By: #### H FPF #### [facility] [address] [address] [address] Ramin Ambrose LDL CALC NORMAL SEE BELOW Normal [facility] Comment on above: Result Comment: <100 mg/dl OPTIMAL 100 - 129 mg/dl NEAR OR ABOVE OPTIMAL 130 - 159 mg/dl BORDERLINE HIGH 160 - 189 mg/dl HIGH >190 mg/dl VERY HIGH Performed By: #### H FPF #### [facility] [address] [place] [address] Dr. Ramin Ambrose Potassium [Moles/Vol] 3.8 mmol/L Normal 3.5-5.1 [facility] Comment on above: Performed By: #### H FPF #### [facility] [facility] [address] [address] [address] Ramin Ambrose Protein [Mass/Vol] 7.7 g/dL Normal 6.4-8.2 [facility] Comment on above: Performed By: #### H FPF #### [facility] [address] [address] [address] Ramin Ambrose Sodium [Moles/Vol] 142 mmol/L Normal 136-145 [facility] Comment on above: Performed By: #### H FPF #### [facility] [address] [address] [address] Ramin Ambrose Triglyceride [Mass/Vol] 36 mg/dL Normal <=150 [facility] Comment on above: Performed By: #### H FPF #### [facility] [address] [address] [address] Ramin Ambrose TSH 1.448 uIU/mL Normal 0.358-3.740 [facility] Comment on above: Performed By: #### H FPF #### [facility] [address] [address] [address] Ramin Ambrose Urea nitrogen [Mass/Vol] 14.0 mg/dL Normal 7.0-18.0 [facility] Comment on above: Performed By: #### H FPF #### [facility] [address] [address] [address] Ramin Ambrose Urea nitrogen/Creatinine [Mass ratio] 12.5 mg/mg Normal [facility] Comment on above: Performed By: #### H FPF #### [facility] [address] [address] [address] Ramin Ambrose VLDL CALC 7.2 mg/dL Normal [facility] Comment on above: Performed By: #### H FPF #### [facility] [address] [address] [address] Ramin Ambrose Vital Signs Date Time Vital Sign Value Performing Clinician Facility 08-20-2024 08:53-0500 Body mass index (BMI) [Ratio] 25.03 kg/m2 Wilian Jessa DO Work Phone: [facility] 08-20-2024 08:53-0500 Body weight 66.13 kg Wilian Jessa DO Work Phone: [facility] 08-20-2024 08:53-0500 Diastolic blood pressure 72 mm[Hg] Wilian Jessa DO Work Phone: [facility] 08-20-2024 08:53-0500 Systolic blood pressure 106 mm[Hg] Wilian Jessa DO Work Phone: [facility] 03-25-2024 15:13-0400 Body height 160.[address] [facility] 03-25-2024 15:13-0400 Body mass index (BMI) [Ratio] 25.5 kg/m2 [facility] 03-25-2024 15:13-0400 Body weight 65.[address] [facility] 03-25-2024 15:13-0400 Diastolic blood pressure 81 mm[Hg] [facility] 03-25-2024 15:13-0400 Heart rate 59 /min [facility] 03-25-2024 15:13-0400 Respiratory rate 12 /min [facility] 03-25-2024 15:13-0400 Systolic blood pressure 127 mm[Hg] [facility] 06-02-2023 12:44-0500 Diastolic blood pressure 72 mm[Hg] DO Justus Ball Work Phone: [facility] 06-02-2023 12:44-0500 Heart rate 63 /min DO Justus Ball Work Phone: [facility] 06-02-2023 12:44-0500 Respiratory rate 18 /min DO Justus Ball Work Phone: [facility] 06-02-2023 12:44-0500 SaO2% (BldA) [Mass fraction] 98 % DO Justus Ball Work Phone: [facility] 06-02-2023 12:44-0500 Systolic blood pressure 119 mm[Hg] DO Justus Ball Work Phone: [facility] 06-02-2023 10:40-0500 Body height 160.02 cm DO Justus Ball Work Phone: [facility] 06-02-2023 10:40-0500 Body weight 61.23 kg DO Justus Ball Work Phone: [facility] 03-16-2023 11:30-0400 Body height 165.1 cm Justus Ball Other [employer] [facility] [employer] Other 03-16-2023 11:30-0400 Body mass index (BMI) [Ratio] 24.69 kg/m2 Justus Ball Other [employer] [employer] Other 03-16-2023 11:30-0400 Body weight 67.31 kg Justus Ball Other [employer] Other 03-16-2023 11:30-0400 Diastolic blood pressure 74 mm[Hg] Justus Ball Other [employer] [employer] Other 03-16-2023 11:30-0400 Respiratory rate 12 /min Justus Ball Other [employer] Other 03-16-2023 11:30-0400 Systolic blood pressure 120 mm[Hg] Justus Ball Other [employer] Other Encounters Encounter Date Encounter Type Care Provider Facility Start: 08-20-2024 End: 08-20-2024 Bamboo flowsheet Wilian Jessa DO Work Phone: [facility] Start: 08-20-2024 End: 08-26-2024 Bamboo flowsheet Wilian Jessa DO Work Phone: [facility] Start: 08-20-2024 End: 08-26-2024 Clinisync Result Encounter Wilian Jessa DO Work Phone: [facility] Unsolicited Start: 08-20-2024 End: 08-20-2024 ambulatory WILIAN BELTRANO Not Available Start: 08-20-2024 End: 08-20-2024 Patient encounter procedure Wilian Jessa DO Work Phone: [facility] Start: 08-20-2024 End: 08-20-2024 Periodic preventive med est patient 40-64yrs Wilian Jessa DO Work Phone: [facility] Comment on above: Well woman exam with routine gynecological exam; Encounter for screening mammogram for malignant neoplasm of breast Start: 03-25-2024 End: 03-25-2024 ambulatory [facility] Work Phone: Start: 03-25-2024 End: 03-25-2024 Encounter for general adult medical examination without abnormal findings [facility] Start: 03-25-2024 End: 03-25-2024 Patient encounter procedure [facility] Work Phone: Start: 03-21-2024 Patient encounter status [facility] Start: 03-01-2024 Non-patient / Non-visit [facility] Work Phone: Start: 08-15-2023 Clinisync Result Encounter Wilian Jessa DO Work Phone: [facility] Unsolicited Start: 08-15-2023 Clinisync Result Encounter Wilian Jessa DO Work Phone: [facility] Unsolicited Start: 06-22-2023 End: 06-22-2023 ambulatory Luis Alberto Davalos Other [employer] Other Start: 06-22-2023 Telephone encounter Luis Alberto Rodriguez [employer] Start: 06-06-2023 End: 06-06-2023 ambulatory Justus Hilario Other [employer] Other Start: 06-06-2023 Telephone encounter Justus Rodriguez [facility] Start: 06-02-2023 End: 06-02-2023 ambulatory Justus Hilario Facility:[facility] Start: 06-02-2023 End: 06-02-2023 Admission to same day surgery center DO Justus Hilario Work Phone: [facility] Work Phone: Start: 06-02-2023 End: 06-02-2023 ambulatory DO Justus Hilario Work Phone: [facility] Work Phone: Start: 03-31-2023 End: 03-31-2023 ambulatory Imad Asaad Other [employer] Other Start: 03-31-2023 Telephone encounter Imad Asaad [facility] [employer] [facility] Start: 03-16-2023 End: 03-16-2023 ambulatory Justus Hilario Other [employer] Other Start: 03-16-2023 Encounter for genera l adult medical examination without abnormal findings Justus Hilario [facility] Start: 03-16-2023 Periodic preventive med est patient 40-64yrs Justus Hilario [facility] Start: 09-26-2022 End: 09-27-[address] WILIAN GERMAIN . Facility: Start: 08-09-2022 End: 08-09-[address] WILIAN GERMAIN . Facility:[facility] Start: 03-29-2022 End: 03-30-[address] JUSTUS HILARIO Facility:[facility] Start: 03-03-2022 End: 03-04-[address] JUSTUS HILARIO Facility:[facility] Procedures Date Procedure Procedure Detail Performing Clinician Start: 08-20-2024 IGP,APTIMA HPV,AGE GDLN Wilian Jessa DO Work Phone: Start: 10-13-2023 Mammography Wiliangaviota Beltran o DO Work Phone: Start: 08-15-2023 IGP,APTIMA HPV,AGE GDLN Wilian Jessa DO Work Phone: Start: 08-15-2023 Microscopic observat ion [Identifier] in Cervix by Cyto stain Wilian Germain DO Work Phone: Start: 08-15-2023 Cytp cerv/vag auto t hin layer prep mnl screen Wilian Germain DO Work Phone: Start: 06-02-2023 Screening colonoscopy D O Justus Hilario Work Phone: Start: 09-26-2022 Mammography Wilian smith DO Work Phone: Screening for malign ant neoplasm of colon Justus Hilario Other Plan of Treatment Date Care Activity Detail Author Start: 08-26-2025 End: 08-26-2025 Patient encounter procedure 08/26/2025 9:00 AM EST Office Visit [facility] [address] [place] [address] Wilian Germain, DO [address] [place], [place] [id number] [facility] Start: 10-12-2024 Screening for malignant neoplasm of breast Mammogram [facility] Start: 08-20-2024 End: 10-18-2025 MG Breast - bilateral Screening Bilateral screening mammogram Imaging Routine Encounter for screening mammogram for malignant neoplasm of breast Expected: 08/20/2024, Expires: 10/18/2025 [facility] Work Phone: Comment on above: Expected: 08/20/2024 , Expires: 10/18/2025 Start: 08-20-2024 End: 08-20-2024 Patient encounter procedure 08/20/2024 8:30 AM EST Office Visit [facility] [address] [place] [address] Wilian Germain, DO [address] [place], [place] [id number] [facility] Start: 08-15-2024 Screening for malignant neoplasm of cervix [facility] Start: 03-17-2024 Influenza vaccination Influenza Vacc ine (#1) [facility] Start: 09-27-2023 Screening for malignant neoplasm of breast Mammogram [facility] Start: 06-02-2023 [facility] Start: 03-17-2023 Influenza vaccination Influenza Vacc ine (#1) [facility] Start: 1992 Screening for malignant neoplasm of cervix [facility] Start: 1983 Screening for malignant neoplasm of cervix Pap Smear [facility] Start: 1960 Screening for malignant neoplasm of colon [facility] Patient Education Hemorrhoids (DC) [facility] Work Phone: THIN PREP TIS PAP AN D HR HPV DNA THIN PREP TIS PAP AND HR HPV DNA Pathology and Cytology Routine Well woman exam with routine gynecological exam Ordered: 08/20/2024 [facility] Comment on above: Ordered: 08/20/2024 Payers Date Payer Category Payer Self-pay 2023 Private Health Insurance [employer] [id number] 2023 Unknown [employer] [id number] 2023-Present [address] [place] [address] [id number] 1960 Unknown [id number] 1960 Unknown [id number] 1960 Unknown [id number] 1960 Unknown [id number] 1959 Self-pay [id number] 1959 Unknown [id number] Unknown [id number] Unknown [id number] Social History Date Type Detail Facility Start: 07-26-2023 End: 08-20-2024 Sex Assigned At [facility] Other Start: 1960 Sex Assigned At Female F [facility] Start: 07-26-2023 Tobacco smoking status KYIS Never smoked tobacco [facility] Start: 08-15-2023 End: 08-20-2024 Alcohol intake Current drinker of alcohol (finding) [facility] Start: 07-26-2023 End: 08-20-2024 History of Social function [facility] Start: 07-26-2023 Alcohol Comment caffeine 1-2 c ups per day coffee [facility] Start: 08-08-2023 Gender identity Identifies as female gender (finding) [facility] Goals Date Patient Goal Desired Activity /State Clinical Notes 03-16-2023 to 08-20-2024 Vandana Nolasco LPN - 08/20/2024 8:30 AM EST Note Date & Type Note Facility 08-20-2024 History of Present illness Narrative Reason for Appointment: Patient ID: Kyra Arroyo is a 64 y.o. female who presents for Well Women Visit Patient presents today for Annual Exam. MEDICATIONS Current Outpatient Medications Medication Instructions levothyroxine (SYNTHROID, LEVOXYL) 100 mcg, Oral, Daily before breakfast ALLERGIES No Known Allergies PROBLEMS Active Ambulatory Problems Diagnosis Date Noted No Active Ambulatory Problems Resolved Ambulatory Problems Diagnosis Date Noted No Resolved Ambulatory Problems Past Medical History: Diagnosis Date Abdominal pain, LLQ Abdominal pain, LUQ BMI 24.0-24.9, adult Breast cancer screening by mammogram Encounter for gynecological examination (general) (routine) without abnormal findings H/O Graves' disease Hypothyroidism, postablative (CMS/HCC) Left renal mass Left sided abdominal pain Post menopausal syndrome Pyuria Renal cyst, left Thyroid disease (CMS/HCC) Upper abdominal pain HISTORY PAST MEDICAL HISTORY SOCIAL HISTORY Past Medical History: Diagnosis Date Abdominal pain, LLQ Abdominal pain, LUQ BMI 24.0-24.9, adult Breast cancer screening by mammogram Encounter for gynecological examination (general) (routine) without abnormal findings H/O Graves' disease Hypothyroidism, postablative (CMS/HCC) Left renal mass Left sided abdominal pain Post menopausal syndrome Pyuria Renal cyst, left Thyroid disease (CMS/HCC) Upper abdominal pain Social History Tobacco Use Smoking status: Never Smokeless tobacco: Not on file Substance Use Topics Alcohol use: Yes Comment: caffeine 1-2 cups per day coffee Drug use: Never FAMILY HISTORY Family History Problem Relation Name Age of Onset Cancer Mother Cancer Father Cancer Paternal Grandmother Cancer Paternal Grandfather Cancer Sibling SURGICAL HISTORY Past Surgical History: Procedure Laterality Date SECTION, LOW TRANSVERSE x5 TUBAL LIGATION 2007 REVIEW OF SYSTEMS Review of Systems: Review of Systems Constitutional: Negative. HENT: Negative. Eyes: Negative. Respiratory: Negative. Cardiovascular: Negative. Gastrointestinal: Negative. Genitourinary: Negative. Musculoskeletal: Negative. Skin: Negative. Neurological: Negative. All other systems reviewed and are negative. Hematological: Negative. Endocrine: Negative. Allergic/Immunologic: Negative. OBJECTIVE Objective: Physical Exam Constitutional: Appearance: Normal appearance. She is well-developed. Genitourinary: Vulva normal. Breasts: Breasts are soft. Right: Normal. Left: Normal. Cardiovascular: Rate and Rhythm: Normal rate and regular rhythm. Pulmonary: Effort: Pulmonary effort is normal. Breath sounds: Normal breath sounds. Abdominal: General: Bowel sounds are normal. There is no distension. Palpations: Abdomen is soft. Tenderness: There is no abdominal tenderness. There is no guarding or rebound. Musculoskeletal: General: No swelling. Normal range of motion. Right lower leg: No edema. Left lower leg: No edema. Neurological: Mental Status: She is alert and oriented to person, place, and time. Skin: General: Skin is warm and dry. Psychiatric: Mood and Affect: Mood normal. Behavior: Behavior normal. Vitals and nursing note reviewed. Exam conducted with a content writer present. Vitals: Estimated body mass index is 25.03 kg/m as calculated from the following: Height as of 24: 5' 4 . Weight as of this encounter: 145 lb 12.8 oz. BP: 106/72 No LMP recorded. Patient is postmenopausal. ASSESSMENT & PLAN ICD-10-CM 1. Well woman exam with routine gynecological exam Z01.419 THIN PREP TIS PAP AND HR HPV DNA 2. Encounter for screening mammogram for malignant neoplasm of breast Z12.31 Bilateral screening mammogram Bilateral screening mammogram Annual: Patient presents today for an annual exam. Patient states she is doing well and has no complaints. Pap was obtained without difficulty and patient given mammogram order to have scheduled/obtained. Orders Placed This Encounter Procedures Bilateral screening mammogram Follow Up: Patient is to return in one year for annual unless needed otherwise. Documented by Vandana Nolasco LPN on behalf of: Wilian Germain DO documented in this encounter [facility] 06-02-2023 Procedure note [facility] 03-16-2023 Evaluation note Encounter Date Diagnosis Assessment [...] she denies abdominal pain, melena or hematochezia [facility] Other Evaluation noteNo assessment information available [facility] Work Phone: Evaluation note* Diagnosis Onset Date Resolution Status Hypothyroidism acute Screening mammogram for breast cancer acute Wellness examination acute [facility] Work Phone: Evaluation note* Diagnosis Well woman exam with routine gynecological exam Routine gynecological examination Encounter for screening mammogram for malignant neoplasm of breast documented in this encounter [facility] Author Silvestre Escalona [facility] June 02, 2023 11:47am Note Date/Time June 02, 2023 11:47[address] [facility] [address] [place] [address] Gastroenterology H&P Signed Patient: Kyra Arroyo MR#: [id number] 0 : 1960 Acct:[id number] Age/Sex: 62 / F Adm Date: 3 Loc: Room: Type: [facility] Attending Dr: Silvestre Escalona MD Copies [...] M.D. Documented By: Silvestre Escalona MD 06/02/23 1147 Signed By: <Electronically signed by Silvestre Escalona MD> 06/02/23 1146 [facility] Work Phone: [facility]bjue general Narrative - Reported* Type Description Date Medical History Pyuria Medical History Postablative hypothyroidism Medical History Renal cyst Medical History Left renal mass Surgical History Delivery Surgical History Essure Procedure Surgical History Excision BCC Surgical History Tubal Ligation Surgical History Colonoscopy 2012 Surgical History BTL 2007 Hospitalization History SEE SURGICAL HX [employer] Other [facility] general Narrative - Reported* Type Description Date Medical History Pyuria Medical History Postablative hypothyroidism Medical History Renal cyst Medical History Left renal mass Surgical History Delivery Surgical History Essure Procedure Surgical History Excision BCC Surgical History Tubal Ligation Surgical History Colonoscopy 2012 Surgical History BTL 2007 Surgical History Colonoscopy 05/2023 Hospitalization History SEE SURGICAL HX [employer] Other Hospital Discharge instructions Additional Instructions DISCHARGE INSTRUCTIONS [...] years. -Follow up with PCP. -Office number [phone]. [facility] Work Phone: Reason for referral (narrative)* Reason *Waiting for appt Referral for screening colonoscopy Diagnosis 1 Screening for colon cancer (Z12.11) Referral Organization [facility] C james Referring Provider First Name Justus Referring Provider Last Name Sulaiman Referring Provider Specialty Internal Me dicine Referred Organization [facility] Referred Provider Silvestre Escalona Referred Address [address] [place], [place],[address] Referred Provider Specialty Gastroentero logy Referral Priority Routine General Notes Mrs. Arroyo is an asym ptomatic, low risk patient who is due for a screening colonoscopy. Her last colonoscopy was in 2012. She denies change in appetite, weight or bowel habits. She denies N/V, heartburn or dysphagia. She denies abdominal pain, melena or hematochezia Merle Lowery 03/16/2023 04:26:24 PM >recieved today, sent P2P [employer] Other Summary Purpose Family History Relationship Condition [...] section and content) DATE CREATED AUTHOR 09/27/2022 Avni bueno DATE CREATED AUTHOR 'S ORGANIZ ATION 06/14/2023 [facility] DATE CREATED AUTHOR AUTHOR'S ORGANIZ ATION 08/22/2024 [facility] EPIC REASON FOR VISIT (unrecogniz ed section and content) Reason Comments Well Women Visit Care Teams (unrecognized sec tion and content) [...] Justus Hilario DO Primary Care Provider Active Reimbursement Auditor Relationship Specialty Start Date End Date Justus Hilario MD [address] [place] [address] PCP - General 08/08/23 Reimbursement Auditor Relationship Specialty Start Date End Date Justus Hilario MD [address] [place] [address] PCP - General 08/08/23 Reimbursement Auditor Relationship Specialty Start Date End Date Justus Hilario MD [address] [place] [address] PCP - General 08/08/23 Reimbursement Auditor Relationship Specialty Start Date End Date Justus Hilario MD [address] [place] [address] PCP - General 08/08/23 Goals (unrecognized section [...] BE BASED ON THE PRIMARY CLINICAL RECORDS. [facility] [employer] [facility]. provides no warranty or guarantee of the accuracy or completeness of information in this document.
--- NOTE | 2024-10-08 18:31 | ECG_ITS ---
[facility] Test Date: 2024-10-08 Pat Name: ROCIO PETE Department: Room: - Gender: Female [employer]: : 1960 Requested By: [id number] Order Number: [id number] Reading MD: MAURICIO WETZEL M.D. Measurements Intervals [place] Rate: 58 P: 62 OK: 158 QRS: 76 QRSD: 86 T: 44 QT: 428 QTc: 424 Interpretive Statements 1100 Sinus rhythm 9110 normal ECG No previous ECG available for comparison Electronically Signed On 10-09-2024 7:43:15 EDT by MAURICIO WETZEL M.D.
--- NOTE | 2024-10-08 18:43 | ED_ITS ---
HPI HPI - General Adult General Chief complaint: Abdominal Pain Stated complaint: ABDOMINAL PAIN Time Seen by Provider: 10/08/24 18:21 Source: patient Mode of arrival: walk-in Limitations: no limitations History of Present Illness HPI narrative: Patient is a 64-year-old female who presents to the emergency department for 3- hour history of pain that began suddenly in the mid abdomen. She denies any recent illness, fevers, cough or congestion. She has no chest pain or shortness of breath. She has no low abdominal pain, flank pain or back pain. She has never had symptoms similarly in the past. She reports 5 previous C-sections but no other abdominal surgeries. She has no urinary symptoms. No medications taken prior to arrival Related Data Home Medications ?Medication ?Instructions ?Recorded ?Confirmed levothyroxine 100 mcg tablet 100 mcg PO QDAY 10/08/24 10/08/24 (Synthroid) Previous Rx's ?Medication ?Instructions ?Recorded hydrocodone 5 mg-acetaminophen 325 1 tab PO Q6H PRN pain 2 days #8 10/08/24 mg tablet tabs hyoscyamine sulfate 0.125 mg 0.125 mg PO Q6H PRN abdominal pain 10/08/24 tablet (Levsin) #12 tabs ondansetron 4 mg disintegrating 4 mg PO Q6H PRN nausea and 10/08/24 tablet vomiting #12 tabs Allergies Allergy/AdvReac Type Severity Reaction Status Date / Time No Known Drug Allergies Allergy Verified 10/08/24 18:19 Opioid HPI Opioid Management Most Recent Opioid Data: Last Pain Scale 0 10/08/24 21:43 10/08/24 Last ED Pain Assessment 10/08/24 21:34 Review of Systems ROS Constitutional Denies: fever or chills Ears, nose, mouth, and throat Denies: throat pain or nasal congestion Cardiovascular Denies: chest pain Respiratory Denies: shortness of breath or cough Gastrointestinal Reports: abdominal pain; Denies: nausea, vomiting or diarrhea Genitourinary Denies: painful urination Musculoskeletal Denies: back pain Integumentary/Breast Denies: rash Neurological Denies: numbness in extremities or weakness in extremities Hematologic/Lymphatic Denies: easy bruising or easy bleeding PFSH PFSH Social History Little interest or pleasure in doing things: not at all Feeling down, depressed, or hopeless: not at all Exam Narrative Exam Narrative: Gen.: Awake, alert, in no distress Head: Normocephalic, atraumatic ENT: Moist mucous membranes Respiratory: No respiratory distress, lungs clear bilaterally Cardio: Regular rate and rhythm Gastrointestinal: Abdomen is soft, nondistended and minimally tender to palpation in the umbilicus with no guarding or rebound. No pain out of proportion on exam Extremities: Moves extremities equally Psych: Normal mood and affect Neuro: No focal neuro deficit Skin: Warm, dry, intact Constitutional Vital Signs, click to edit/add: Last Vital Signs Temp 98.2 F 10/08/24 21: Pulse 58 L 10/08/24 21:29 Resp 18 10/08/24 21:29 BP 112/75 10/08/24 21:29 Pulse Ox 98 10/08/24 21:29 O2 Del Method Room Air 10/08/24 18:20 Course Vital Signs Vital signs: Vital Signs Temperature 97.6 F 10/08/24 18:20 Pulse Rate 64 10/08/24 18:20 Respiratory Rate 16 10/08/24 18:20 Blood Pressure 171/94 H 10/08/24 18:20 Pulse Oximetry 100 10/08/24 18:20 Oxygen Delivery Method Room Air 10/08/24 18:20 Temperature 98.2 F 10/08/24 21:29 Pulse Rate 58 L 10/08/24 21:29 Respiratory Rate 18 10/08/24 21:29 Blood Pressure 112/75 10/08/24 21:29 Pulse Oximetry 98 10/08/24 21:29 Oxygen Delivery Method Room Air 10/08/24 18:20 Medical Decision Making [facility] Narrative Medical decision making narrative: Patient treated with IV fluids, Dilaudid, Zofran, Levsin with significant improvement and she is resting comfortably on reevaluation with stable vital signs. Laboratory studies reviewed and noted within normal limits, CT shows no evidence of acute process, mild periportal edema is noted. Patient encouraged to recheck with primary care in the next several days. Short course of analgesics, Levsin and Zofran given for home. Abdomen is soft and benign at discharge. Return to the ER if symptoms change or worsen SUPERVISED APC VISIT, PHYSICIAN ATTESTATION: Based on the medical record the care appears appropriate. ? Medical Records Medical records reviewed: Yes I reviewed the patient's medical records Lab Data Lab results reviewed: Yes I reviewed the patient's lab results Labs: Lab Results 10/08/24 10/08/24 Range/Units 18:30 18:50 WBC 6.2 (4.0-11.0) 10^3/uL RBC 4.04 L (4.20-5.40) 10^6/uL Hgb 12.8 (12.0-16.0) g/dL Hct 37.9 (36.0-48.0) % MCV 93.8 (81.0-99.0) fL MCH 31.7 (26.7-34.0) pg MCHC 33.8 (29.9-35.2) g/dL RDW 11.4 (11.0-15.0) % Plt Count 209 (150-450) 10^3/uL MPV 10.2 (9.5-13.5) fL Neut % (Auto) 63.1 (43.0-75.0) % Lymph % (Auto) 25.9 (20.5-60.0) % [place] % (Auto) 5.8 (1.7-12.0) % Eos % (Auto) 4.2 (0.9-7.0) % Baso % (Auto) 0.8 (0.2-2.0) % Neut # (Auto) 3.9 (1.4-6.5) 10^3/uL Lymph # (Auto) 1.6 (1.2-3.8) 10^3/uL [place] # (Auto) 0.4 (0.3-0.8) 10^3/uL Eos # (Auto) 0.3 (0.0-0.7) 10^3/uL Baso # (Auto) 0.1 (0.0-0.1) 10^3/uL Abs Immat Gran (auto) 0.01 (0.00-0.03) 10^3/uL Imm/Tot Granulo (auto) 0.2 (0.0-0.5) % Sodium 138 (136-145) mmol/L Potassium 3.5 (3.5-5.1) mmol/L Chloride 101 (98-107) mmol/L Carbon Dioxide 32.1 H (21.0-32.0) mmol/L Anion Gap 8.4 BUN 19.0 H (7.0-18.0) mg/dL Creatinine 0.99 (0.55-1.02) mg/dL Est GFR ( Amer) >60 (>=60 mL/min/1.73m^2) Est GFR (Non-Af Amer) 57 L (>=60 mL/min/1.73m^2) BUN/Creatinine Ratio 19.2 Glucose 94 (74-106) mg/dL Lactate 0.9 (0.4-2.0) mmol/L Calcium 9.3 (8.5-10.1) mg/dL Total Bilirubin 0.3 (0.2-1.0) mg/dL AST 40 H (15-37) U/L ALT 40 (14-59) U/L Alkaline Phosphatase 54 (46-116) U/L Troponin I High Sens 7.0 (4.0-51.3) pg/mL Total Protein 7.1 (6.4-8.2) g/dL Albumin 4.0 (3.4-5.0) g/dL Globulin 3.1 g/dL Albumin/Globulin Ratio 1.3 Lipase 32.0 (16.0-77.0) U/L Urine Color Lt. yellow (YELLOW) Urine Clarity Clear (CLEAR) Urine pH 6.0 (5.0-9.0) Ur Specific [place] 1.010 (1.005-1.025) Urine Protein Negative (NEG/TRACE) mg/dL Urine Glucose (UA) Negative (NEGATIVE) mg/dL Urine Ketones Negative (NEGATIVE) mg/dL Urine Occult Blood Small A (NEGATIVE) Urine Nitrite Negative (NEGATIVE) Urine Bilirubin Negative (NEGATIVE) Urine Urobilinogen 0.2 (0.2-1.0) EU/dL Ur Leukocyte Esterase Small A (NEGATIVE) Urine RBC 0-2 (0-2) #/HPF Urine WBC 0-2 A (NONE SEEN) #/HPF Ur Squamous Epith Cells Rare (NONE/RARE) #/LPF Urine Crystals None seen (None Seen) #/HPF Urine Bacteria None seen (NONE SEEN) #/HPF Urine Casts None seen (NONE SEEN) #/LPF Urine Mucus None seen (NONE SEEN) Ur Culture Indicated? [place] [facility] [place] Data Attestation: I personally reviewed and interpreted this ECG as follows: Discharge Plan Discharge Chief Complaint: Abdominal Pain Clinical Impression: Abdominal pain Patient Disposition: Home, Self-Care Time of Disposition Decision: 21:08 Condition: Good Prescriptions / Home Meds: New hydrocodone-acetaminophen 5-325 mg tablet 1 tab PO Q6H PRN (Reason: pain) 2 Days Qty: 8 0RF Rx Instructions: Dx: R10.9 hyoscyamine sulfate [Levsin] 0.125 mg tablet 0.125 mg PO Q6H PRN (Reason: abdominal pain) Qty: 12 0RF ondansetron 4 mg tablet,disintegrating 4 mg PO Q6H PRN (Reason: nausea and vomiting) Qty: 12 0RF No Action levothyroxine [Synthroid] 100 mcg tablet 100 mcg PO QDAY Print Language: Bahamian Instructions: Acute Abdominal Pain (ED) Referrals: Justus Hilario DO [Primary Care Provider] - 1 week Discharge Date/Time: 10/08/24 21:48
[2024-10-08 18:47] LABS: Bilirubin Urine NEGATIVE (NEGATIVE); Blood Urine SMALL (NEGATIVE); Clarity Urine CLEAR (CLEAR); Color Urine LT. YELLOW (YELLOW); Glucose Urine UA NEGATIVE (NEGATIVE); Ketones Urine NEGATIVE (NEGATIVE); Leukocyte Esterase Urine SMALL (NEGATIVE); Nitrite Urine NEGATIVE (NEGATIVE); Protein Urine NEGATIVE (NEG/TRACE); Urobilinogen Urine 0.2 EU/dL (0.2-1.0)
[2024-10-08 18:50] LABS: Urine Microscopic Indicated YES
[2024-10-08] MEDS: HYOSCYAMINE SULFATE 0.125 MG TAB.SUBL SL (18:56)
[2024-10-08] MEDS: ONDANSETRON PF 4 MG/2 ML VIAL IV (18:56)
[2024-10-08] MEDS: HYDROMORPHONE HCL 0.5 MG/0.5 ML SYRINGE IV (18:56)
[2024-10-08] MEDS: 0.9 % SODIUM CHLORIDE 1,000 ML 999 ML IV (18:57)
[2024-10-08 18:59] LABS: Bacteria Urine NONE SEEN #/HPF (NONE SEEN); Cast Seen? NONE SEEN #/LPF (NONE SEEN); Crystals Seen? None Seen #/HPF (None Seen); Mucus Urine NONE SEEN (NONE SEEN); RBC Urine 0-2 #/HPF (0-2); Squamous Epithelial Cell Urine RARE #/LPF (NONE/RARE); WBC Urine 0-2 #/HPF (NONE SEEN)
[2024-10-08 19:00] LABS: Urine Culture Indicated YES-FRMC
[2024-10-08 19:31] LABS: Basophils Absolute Auto 0.1 10^3/uL (0.0-0.1); Basophils Percent Auto 0.8 % (0.2-2.0); Eosinophils Absolute Auto 0.3 10^3/uL (0.0-0.7); Eosinophils Percent Auto 4.2 % (0.9-7.0); Hematocrit 37.9 % (36.0-48.0); Hemoglobin 12.8 g/dL (12.0-16.0); Immature Granulocytes Abs Auto 0.01 10^3/uL (0.00-0.03); Immature Granulocytes Pct Auto 0.2 % (0.0-0.5); Lymphocytes Absolute Auto 1.6 10^3/uL (1.2-3.8); Lymphocytes Percent Auto 25.9 % (20.5-60.0); Mean Corpuscular HGB Conc 33.8 g/dL (29.9-35.2); Mean Corpuscular Hemoglobin 31.7 pg (26.7-34.0); Mean Corpuscular Volume 93.8 fL (81.0-99.0); Mean Platelet Volume 10.2 fL (9.5-13.5); Monocytes Absolute Auto 0.4 10^3/uL (0.3-0.8); Monocytes Percent Auto 5.8 % (1.7-12.0); Neutrophils Absolute Auto 3.9 10^3/uL (1.4-6.5); Neutrophils Percent Auto 63.1 % (43.0-75.0); Platelet Count 209 10^3/uL (150-450); Red Blood Count 4.04 10^6/uL (4.20-5.40); Red Cell Distribution Width 11.4 % (11.0-15.0); White Blood Count 6.2 10^3/uL (4.0-11.0)
[2024-10-08 19:48] LABS: Lactate/Lactic Acid 0.9 mmol/L (0.4-2.0)
[2024-10-08 19:49] LABS: Alanine Aminotransferase 40 U/L (14-59); Albumin Globulin Ratio 1.3; Alkaline Phosphatase 54 U/L (46-116); Anion Gap 8.4; Aspartate Amino Transferase 40 U/L (15-37); BUN Creatinine Ratio 19.2; Bilirubin Total 0.3 mg/dL (0.2-1.0); Calcium 9.3 mg/dL (8.5-10.1); Carbon Dioxide 32.1 mmol/L (21.0-32.0); Chloride 101 mmol/L (98-107); Estimated GFR (African America >60 (>=60 mL/min/1.73m^2); Estimated GFR (Non-African Ame 57 (>=60 mL/min/1.73m^2); Globulin 3.1 g/dL; Glucose 94 mg/dL (74-106); Potassium 3.5 mmol/L (3.5-5.1); Sodium 138 mmol/L (136-145); Total Protein 7.1 g/dL (6.4-8.2)
--- NOTE | 2024-10-08 19:54 | PC.NURSE ---
this patient updated that waiting on lab results prior going to CT dept
--- NOTE | 2024-10-08 20:50 | PC.NURSE ---
this patient awake and alert sitting upright on the bed. this patient updated again that still waiting on ct results to come back. this patient voices no concerns and shows no signs of distress
--- NOTE | 2024-10-08 21:38 | PC.NURSE ---
I called [facility] pharmacy for this patient's medication order
[2024-10-08] MEDS: HYDROCODONE/ACET 5-325 MG TABLET 1 TAB PO (21:43)
--- NOTE | 2024-10-08 21:46 | PC.NURSE ---
i gave this patient verbal and written discharge orders along with 3 e-scripts and 1 tab medication to go home with, this patient voices yes to understanding these. at time of discharge this patient voices no concerns and shows no signs of distress
== END 2024-10-08 21:48 | disposition home or self-care (01) ==
PROVIDERS: Emergency Medicine; Physician Assistant; Emergency Provider Emergency Medicine; PCP Internal Medicine
DX: R10.9 Unspecified abdominal pain (principal)
CPT/HCPCS: 36415; 74177; 80053; 81001; 83605; 83690; 84484; 85025; 87086; 93005; 96374; 96375; 99285; J1171; J2405; Q9967

== ENCOUNTER 2024-11-11 07:26 | Outpatient (OUT) | payer OTHER, SELFPAY ==
--- NOTE | 2024-11-11 07:29 | MM_ITS ---
Patient Name: ROCIO PETE MR#: [id number] : 1960 Exam Date: 11/11/2024 Ordering Doctor: DR WILIAN VILLALTA . RADIOLOGY REPORT PROCEDURE: MM TOMOSYNTHESIS SCREENING BI COMPARISON: MM TOMOSYNTHESIS SCREENING BI, 10/13/2023. MG MAMM SCREEN 3D [place] CAD, 09/26/2022. MG MAMM SCREEN 3D [place] CAD, 09/23/2021. MG MAMM [place] SCRN W CAD DIG, 02/06/2013. INDICATIONS: Screening for malignant neoplasm Calculator Name NCI Breast Cancer Risk Assessment Tool 5 Year Breast Cancer Risk 1.40% Lifetime Breast Cancer Risk 6.20% Personal Breast Cancer No Personal Ovarian Cancer No Treatments None Family Cancers Sister with lung cancer at age 57; Aunt-maternal with breast cancer at age 60; Aunt-paternal with breast cancer at age 58; Father with vocal chords cancer at age 50; Mother with lung cancer at age 40. LOCATION: [facility] BREAST COMPOSITION: There are scattered areas of fibroglandular density. FINDINGS: DIAGNOSTIC CATEGORY 1--NEGATIVE. RIGHT BREAST: No significant suspicious finding. LEFT BREAST: No significant suspicious finding. RECOMMENDATIONS: ROUTINE MAMMOGRAM AND CLINICAL EVALUATION IN 12 MONTHS. PLEASE NOTE: A NORMAL MAMMOGRAM DOES NOT EXCLUDE THE POSSIBILITY OF BREAST CANCER. A CLINICALLY SUSPICIOUS PALPABLE LUMP SHOULD BE BIOPSIED. Dictated by: Zack Bush DO on 11/11/2024 at 16:28 Approved by: Zack Bush DO on 11/11/2024 at 16:37
== END 2024-11-11 07:27 | disposition home or self-care (01) ==
LOC: MAMMO 07:26
PROVIDERS: PCP Internal Medicine; Visit Provider Obstetrics & Gynecology
DX: Z12.31 Encounter for screening mammogram for malignant neoplasm of breast (principal); Z80.1 Family history of malignant neoplasm of trachea, bronchus and lung; Z80.3 Family history of malignant neoplasm of breast; Z80.8 Family history of malignant neoplasm of other organs or systems
CPT/HCPCS: 77063; 77067